=== PATIENT | female | born 1945 | race Caucasian/White ===

== ENCOUNTER 2020-08-19 08:33 | Observation (INO) | payer MEDICARE, BC, SELFPAY ==
[2020-08-19] VITALS (25 sets, daily range): BP systolic 128–172; BP diastolic 37–92; PULSE 45–70; RESP 12–27; TEMP 36.4–36.7; O2SAT 95–99
--- NOTE | 2020-08-19 | DI.US_ITS ---
APPROVED REPORT EXAM: Comprehensive 2D, Doppler, and color-flow Echocardiogram Patient Location: In-Patient Room/Bed: [address] [employer] Incentive Analyst: Farhana Buckley RDCS (AE) Indications: Fatigue, Weakness,Abnormal EKG, HTN Other Information Study Quality: Good Conclusion Left Ventricle : The left ventricle is normal size. The left ventricular systolic function is normal. The left ventricular ejection fraction is within the normal range. There is normal left ventricular wall thickness. There is normal LV segmental wall motion. The left ventricular diastolic function is normal. LVEF is 65-70%. Right Ventricle : The right ventricle is normal size. The right ventricular systolic function is norm al. The RVSP is 23.0mmHg. Atria : The left atrium size is normal. The right atrium size is normal. Aortic Valve : The aortic valve is normal in structure. Aortic valve is trileaflet. Mild aortic regur gitation. There is no aortic valvular stenosis. Mitral Valve : The mitral valve is normal in structure. Mild mitral regurgitation. No evidence of desi ral valve stenosis. Great Vessels : The aortic root is normal in size. The ascending aorta is moderately dilated. Aortic arch is normal in caliber. IVC is normal in size and collapses >50% with inspiration. Pericardium : Small circumferential pericardial effusion without evidence of tamponade. Please see remainder of study for further details. Wall motion Left Ventricle The left ventricle is normal size. The left ventricular systolic function is normal. The left ventric ular ejection fraction is within the normal range. There is normal left ventricular wall thickness. T here is normal LV segmental wall motion. The left ventricular diastolic function is normal. There is no ventricular septal defect visualized. LVEF is 65-70%. Right Ventricle The right ventricle is normal size. The right ventricular systolic function is normal. The RVSP is 23 .0mmHg. Atria The left atrium size is normal. The right atrium size is normal. The interatrial septum is intact wit h no evidence for an atrial septal defect. Aortic Valve The aortic valve is normal in structure. Aortic valve is trileaflet. There is no aortic valvular sten osis. Mild aortic regurgitation. Mitral Valve The mitral valve is normal in structure. No evidence of mitral valve stenosis. Mild mitral regurgitat ion. Mild mitral valve prolapse. Tricuspid Valve The tricuspid valve is normal in structure. There is no tricuspid valve stenosis. Trace tricuspid reg urgitation. Pulmonic Valve The pulmonary valve is normal in structure. There is no pulmonic valvular stenosis. Trace pulmonic re gurgitation. Great Vessels The aortic root is normal in size. The ascending aorta is moderately dilated. Aortic arch is normal i n caliber. IVC is normal in size and collapses >50% with inspiration. Pericardium Small circumferential pericardial effusion. There is no evidence of tamponade physiology. 2D Dimensions IVSD d PLAX 0.77 cm F: 0.6-1.0 LV Vol A2C d MOD 71.9 mL LVPW d PLAX 0.75 cm F: 0.6 - 1.0 LV Vol A4C d MOD 73.3 mL LVID d PLAX 4.71 cm F: 3.8 - 5.2 LA vol/ BSA A2C s A-L 21.6 mL/m2 LVDs 2.90 cm F: 2.2 - 3.5 LA vol/ BSA A4C s A-L 37.6 mL/m2 Ao Root d 3.10 cm F: 2.7 - 3.3 LA Vol/ BSA Biplane s A-L 33.9 mL/m2 RA Area A4C 21.15 cm2 LA Area A4C s MOD 19.65 cm2 RA Vol/ BSA A4C s A-L 47.9 mL/m2 LA Area A2C s MOD 12.53 cm2 Ao Asc Diam d 3.60 cm F: 2.3 - 3.1 LV EF A4C MOD 70.1 % LV EF Teichholz 67.7 % LV EF A2C MOD 64.9 % LVEF (Stone's) 66.18 % F: 54 - 74 LV EF Biplane MOD 66.2 % LV Volume 61.11 mL F: 46 - 106 SV 48.21 mL LV Volume Index 41.57 mL/m2 F: 29 - 61 SV Index 32.67 mL/m2 LV Vol Biplane MOD 72.8 mL FS 37.60 % M-Mode TAPSE 2.51 cm (M/F) >1.7 LV Diastology MV E' medial 0.074 (>0.07 m/s) E/A Ratio 0.9 LV E/e MED 9.45 (<14) MV E Vmax 0.70 (0.4-1.3 m/s) MV E' lateral 0.084 (>0.1 m/s) MV A Vmax 0.80 (0.4-1.3 m/s) LV E/e LAT 8.35 (<14) MV E/A Ratio 0.87 MV E/E' medial 9.46 MV E/E' lateral 8.36 Aortic Valve LVOT Area 2.93 cm2 AoV Area Vmax 2.29 cm2 LVOT Vmax 1.19 m/s AoV Area/ BSA (Vmax) 1.55 cm2/m2 LVOT Mean Ha. 0.67 m/s HI Mean Ha. 2.01 cm2 LVOT Peak Grad 5.6 mmHg HI Mean Ha. Index 1.36 cm2/m2 LVOT Mean Grad 2.3 mmHg AR DT 2744 msec LVOT VTI 0.280 m AR PHT 796 msec LVOT Diam s 1.90 cm AoV Vmax 1.52 m/s Velocity Ratio 0.78 AoV Mean Ha. 0.98 m/s AoV Peak Grad 9.2 mmHg LVOT SV 82.14 mL AoV Mean Grad 4.5 mmHg AoV VTI 0.350 m AoV Area VTI 2.35 cm2 AoV Area/ BSA (VTI) 1.59 cm/m2 Mitral Valve MV DT 263 (160-240 msec) MR Vmax 3.42 m/s MV PHT 76 msec MR VTI 1.166 m MV Area PHT 2.88 cm2 MR Peak Grad 46.8 mmHg MV VTI 0.376 m MR Mean Grad 38.8 mmHg MV VTI Annulus 0.360 m MR PISA Radius 0.32 cm MV Area VTI 2.10 (4.0-6.0 cm2) MR EROA 0.06 cm2 MR Aliasing Velocity 0.35 m/s MR PISA 0.64 cm2 Pulmonary Valve PV Vmax 0.78 (0.5-1.5 m/s) RVOT Peak Gr. 1.33 mmHg PV Peak Grad 2.4 mmHg RVOT Mean Gr. 0.65 mmHg PV Mean Grad 1.3 mmHg RVOT VTI 0.141 m PV VTI 0.194 m RVOT Vmax 0.58 m/s Tricuspid Valve TR Peak Grad 20.0 mmHg TR Vmax 2.24 m/s RA Pressure 3.00 mmHg RVSP (TR) 23.0 mmHg
--- NOTE | 2020-08-19 09:00 | DI.RAD_ITS ---
EXAM: XR CHEST 2V PA LATERAL CLINICAL HISTORY: generalized weakness TECHNIQUE: 2D digital imaging was performed. COMPARISON: No exams were available for comparison FINDINGS: MEDIASTINUM: Normal. HEART: Normal. PULMONARY VASCULATURE: Normal. LUNGS: Clear. PLEURAL SPACE: No pleural effusion or pneumothorax. BONE:Within normal limits for the patient's age. OTHER FINDINGS:Normal. IMPRESSION: No acute pulmonary findings. DATA REPOSITORY: RADIATION DOSE DELIVERED:
--- NOTE | 2020-08-19 09:15 | RT.EKG_ITS ---
APPROVED REPORT Exam: Resting ECG Patient Location: E HR:50 bpm ECG Measurements Heart Rate 50 AXIS ND 153 P 65 QRSd 84 QRS 15 QT 438 T 66 QTc 400 Conclusion Sinus bradycardia...rate< 60 Anteroseptal infarct, age indeterminate...Q >35mS, T neg, V1-V2 sinus bradycardia at 50, normal axis, Q waves V1 and V2, no STEMI, nondiagnostic EKG
--- NOTE | 2020-08-19 09:20 | ED.GENADUL_ITS ---
Discharge Plan Disposition Condition: Stable Discharge Details Chief Complaint: Abd Prob Admit Date/Time: 08/19/20 11:46 Admit Provider: Zully Jerez Attending Provider: Zully Jerez Primary Care Provider: Edith,Local ED Provider: Angela Casillas Discharge Instructions Activity:: Activity as Tolerated Equipment/Supplies:: No Equipment Needed Diet:: As Tolerated Discharge Orders Discharge Orders: Discharge Order (Routine); Ordered 08/20/20 Ordered By: Kendra Ayon Discharge Data Discharge Date/Time-TO BE ENTERED AT DEPARTURE: 08/19/20 12:34 Medical Decision Making Molly Meek is a 75 y/o woman with h/o HTN who presented to the emergency department with progressive fatigue and loss of appetite beginning one month ago, Pt now has not eaten in 2 days and is having difficulty caring for herself. On exam Pt appears fatigued but is otherwise well and non-toxic appearing. Non-focal neuro exam, benign abdominal exam. Concern for dehydration, metabolic/lyte derangement, possible occult infection, malignancy, other. Plan for EKG, CXR, screening labs, CT abd/pelv, IVF hydration. Labs reviewed, non-diagnostic. CXR okay. CT shows possible colitis. Unclear etiology of symptoms at this time. Given significant progression over past 2 days, plan for observation for further evaluation. Pt is amenable to the plan. Clinical Impression: loss of appetite, fatigue Disposition: [facility] inpt Medical Records Medical records reviewed: Yes I reviewed the patient's medical records. Imaging Data Radiologic Study: Attestation: I personally reviewed and interpreted this imaging study as follows: Radiologist's impression: EXAM: XR CHEST 2V PA LATERAL CLINICAL HISTORY: generalized weakness TECHNIQUE: 2D digital imaging was performed. COMPARISON: No exams were available for comparison FINDINGS: MEDIASTINUM: Normal. HEART: Normal. PULMONARY VASCULATURE: Normal. LUNGS: Clear. PLEURAL SPACE: No pleural effusion or pneumothorax. BONE:Within normal limits for the patient's age. OTHER FINDINGS:Normal. IMPRESSION: No acute pulmonary findings. EXAM: CT ABDOMEN PELVIS W CLINICAL HISTORY: lack of appetite, bloating TECHNIQUE: Imaging Protocol: Axial computed tomography images with coronal and sagittal reformatted images were created and reviewed CONTRAST MATERIAL: Intravenous: Omnipaque 350 Contrast volume:76 mL Oral: No COMPARISON: No exams were available for comparison FINDINGS: ABDOMEN: Lung Bases: Normal where visualized. Small pericardial effusion. Liver: Normal density. No measurable mass. Portal, Superior Mesenteric, and Splenic Veins: Unremarkable. Gallbladder and Biliary Tract: No radiodense calculus or dilation. Pancreas: Normal density, no abnormal calcifications or inflammatory process. Spleen: No acute abnormality. Adrenals: No masses seen. Kidneys: Normal size, contour and axis. No radiodense stones or obstructive urop athy. No masses seen. Abdominal Aorta: Abdominal portion non-dilated. Mild atherosclerosis. Bowel: No evidence of bowel obstruction. There is mild thickening of the wall of the distal transverse colon and proximal descending colon. This may be due to underdistention but a nonspecific inflammatory or infectious colitis should be considered. Please correlate clinically. Appendix is unremarkable. Diverticulosis of the sigmoid colon, but no evidence of acute diverticulitis. Peritoneal Cavity: No ascites, collection or mesenteric inflammatory response. No free air. Lymph Nodes: Within normal limits. Bones: Within normal limits for the patient's age. Soft Tissues: Unremarkable. PELVIS: Bladder: Symmetric distention, no gross wall thickening. Reproductive Organs: Unremarkable as visualized. Lymph Nodes: Within normal limits. Bones: Within normal limits for the patient's age. IMPRESSION: 1. Mild thickening of the wall of the transverse and proximal descending colon. This may be due to underdistention but a nonspecific inflammatory infectious colitis should be considered. 2. Sigmoid diverticulosis but no evidence of acute diverticulitis. 3. Results of this exam have been verbally communicated with provider. Lab Data Lab results reviewed: Yes I reviewed the patient's lab results. ECG Data Attestation: I personally reviewed and interpreted this ECG (s) as follows: Interpretation: EKG shows sinus bradycardia at 50, normal axis, Q waves V1 and V2, no STEMI, nondiagnostic EKG HPI General Mode of arrival: ambulatory . Date/Time Provider Initiated Documentation: 08/19/20 08:35 . Limitations to Documentation: no limitations . Information obtained by: patient, RN notes reviewed and old records reviewed . HPI Narrative: Molly Meek is a 75-year-old woman with history of hypertension presenting to the emergency department with generalized weakness, lack of appetite. Patient reports that approximately 2 weeks ago she noticed that she seemed to have a decrease in her usual appetite. Patient continued to eat and drink normally, however in the last 2 days appetite has become worse. Patient reports that for the past 2 days she has not wanted to eat anything at all, and has not had a meal since 08/17/2020. 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 Pt reports that her weakness has been substantial enough that she feels almost unable to care for herself. She denies any pain, fever, shortness of breath, cough, vomiting, diarrhea, constipation, new numbness, localized weakness. Reports chronic numbness left ankle after fracture 1 year ago, this is unchanged. Patient reports normal bowel movement yesterday. Patient reports that she does not have nausea and she can taste food normally. Patient reports that she has never had a similar episode in the past. Related Data Home Medications Medication Instructions Recorded Confirmed amlodipine 2.5 mg PO QPM 08/19/20 08/19/20 losartan 100 mg PO DAILY 08/19/20 08/19/20 Allergies Allergy/AdvReac Type Severity Reaction Status Date / Time No Known Allergies Allergy Unverified 08/19/20 08:43 General Stated Complaint: Abd Prob JAVI: 3 Review of Systems Narrative: Constitutional: denies fevers, reports generalized weakness, fatigue Eyes: denies eye pain ENT: denies ear pain, dental pain, sore throat Cardiovascular: denies chest pain, lightheadedness Respiratory: denies SOB, cough GI: denies abdominal pain, vomiting, diarrhea : denies flank pain MSK: denies back pain, neck pain, arthralgias, myalgias Skin: denies rash Neuro: denies headaches, new numbness, localized weakness [facility] Medical History (Updated 08/19/20 @ 15:18 by Trena Hopkins NP) HTN (hypertension) Social History Smoking/Tobacco Use Status: Former Tobacco Use Smoking risk assessment performed?: Yes Alcohol Intake: former Drug use: Daily Substance use type: marijuana Do you feel safe at home: Yes Do you feel safe in your relationship?: Yes Exam Narrative Exam Narrative: Constitutional: well and [id number], pleasant, conversing normally HENT: head atraumatic/normocephalic/normal inspection, mucous membranes moist Eyes: conjunctiva normal, sclera normal, pupils 3mm b/l Neck: no stridor, normal ROM, trachea midline Chest: normal inspection Resp: normal work of breathing, LCTAB Cardio: normal rate, normal rhythm, no murmur appreciated GI: abdomen soft, non-tender, non-distended Back: normal inspection, no rash Skin: warm, dry, normal color, no rash Neuro: alert, not altered, grossly non-focal, normal tone Ext: no edema Psych: normal mood, normal affect, normal behavior Course Vital Signs Vital signs: Vital Signs Temperature 36.4 C L 08/19/20 08:39 Pulse 70 08/19/20 08:39 Blood Pressure 166/88 H 08/19/20 08:39 Pulse Oximetry 96 08/19/20 08:39 Temperature 36.4 C L 08/19/20 08:39 Temperature Source Temporal Artery Scan 08/19/20 08:39 Pulse 70 08/19/20 08:39 Respiratory Effort Non-Labored 08/19/20 08:51 Blood Pressure 166/88 H 08/19/20 08:39 Blood Pressure Position Sitting 08/19/20 08:39 Pulse Oximetry 96 08/19/20 08:39 Oxygen Delivery Method Room Air 08/19/20 08:39 Oxygen Flow Rate 0 08/19/20 08:39 Pain Level 0 08/19/20 08:39
[2020-08-19 09:32] LABS: Source Nasal/Nares
[2020-08-19 09:33] LABS: Abs Immature Grans 0.02 10^3/uL (0.0-0.06); Absolute Basophil Count 0.04 10^3/uL (0.0-0.2); Absolute Eosinophil Count 0.09 10^3/uL (0.0-0.7); Absolute Lymphocyte Count 1.01 10^3/uL (1.2-3.4); Absolute Monocyte Count 0.38 10^3/uL (0.1-0.8); Absolute Neutrophil Count 3.33 10^3/uL (1.2-6.7); Basophils % 0.8; Eosinophils % 1.8; HCT 39.4 % (36.0-46.0); HGB 13.5 g/dL (11.2-15.7); Immature Grans % 0.4; Lymphocytes % 20.7; MCH 30.8 pg (27.0-33.0); MCHC 34.3 % (32.0-36.0); MPV 9.7 fL (8.0-11.0); Monocytes % 7.8; Neutrophils % 68.5; Nucleated RBC 0 %; Platelet Count 302 10^3/uL (130-400); RBC 4.38 10^6/uL (3.93-5.22); RDW 12.8 % (11.7-14.6); RDW-SD 42.5 fL; WBC 4.87 10^3/uL (4.4-10.8)
[2020-08-19 09:46] LABS: ALT 29 U/L (14-59); AST 24 U/L (15-37); Alkaline Phosphatase 49 U/L (46-116); Anion Gap 8.9 mmol/L (3-11); BUN 10 mg/dL (7-18); Bilirubin, Total 0.8 mg/dL (0.2-1.0); CO2 26.1 mmol/L (21.0-32.0); CREATININE 0.8 mg/dL (0.55-1.02); Calcium 9.5 mg/dL (8.5-10.1); Chloride 99 mmol/L (98-107); Glucose 106 mg/dL (74-106); Lipase 140 U/L (73-393); Magnesium 2.1 mg/dL (1.8-2.4); Potassium 3.9 mmol/L (3.5-5.1); Sodium 134 mmol/L (136-145); Total Protein 7.4 g/dL (6.4-8.2)
[2020-08-19 09:48] LABS: Troponin I < 0.05 ng/mL (<0.06)
[2020-08-19] MEDS: Normal Saline 1,000 ML 1000 ML IV (09:53)
--- NOTE | 2020-08-19 10:00 | DI.CT_ITS ---
EXAM: CT ABDOMEN PELVIS W CLINICAL HISTORY: lack of appetite, bloating TECHNIQUE: Imaging Protocol: Axial computed tomography images with coronal and sagittal reformatted images were created and reviewed CONTRAST MATERIAL: Intravenous: Omnipaque 350 Contrast volume:76 mL Oral: No COMPARISON: No exams were available for comparison FINDINGS: ABDOMEN: Lung Bases: Normal where visualized. Small pericardial effusion. Liver: Normal density. No measurable mass. Portal, Superior Mesenteric, and Splenic Veins: Unremarkable. Gallbladder and Biliary Tract: No radiodense calculus or dilation. Pancreas: Normal density, no abnormal calcifications or inflammatory process. Spleen: No acute abnormality. Adrenals: No masses seen. Kidneys: Normal size, contour and axis. No radiodense stones or obstructive uropathy. No masses seen. Abdominal Aorta: Abdominal portion non-dilated. Mild atherosclerosis. Bowel: No evidence of bowel obstruction. There is mild thickening of the wall of the distal transver se colon and proximal descending colon. This may be due to underdistention but a nonspecific inflamm atory or infectious colitis should be considered. Please correlate clinically. Appendix is unremark able. Diverticulosis of the sigmoid colon, but no evidence of acute diverticulitis. Peritoneal Cavity: No ascites, collection or mesenteric inflammatory response. No free air. Lymph Nodes: Within normal limits. Bones: Within normal limits for the patient's age. Soft Tissues: Unremarkable. PELVIS: Bladder: Symmetric distention, no gross wall thickening. Reproductive Organs: Unremarkable as visualized. Lymph Nodes: Within normal limits. Bones: Within normal limits for the patient's age. IMPRESSION: 1. Mild thickening of the wall of the transverse and proximal descending colon. This may be due to u nderdistention but a nonspecific inflammatory infectious colitis should be considered. 2. Sigmoid diverticulosis but no evidence of acute diverticulitis. 3. Results of this exam have been verbally communicated with provider. RADIATION DOSE DELIVERED: 496.77mGy.cm Total DLP DATA REPOSITORY: All CT scans at this facility are submitted to the National Radiology Data Registry (NRDR) Dose Index Registry (DIR) with the [employer] ([employer]). RADIATION OPTIMIZATION: All CT scans at this facility use at least one of these dose optimization te chniques: automated exposure control; mA and/or kV adjustment per patient size (includes targeted exa ms where dose is matched to clinical indication); or iterative reconstruction.
[2020-08-19] MEDS: Omnipaque 350 MG/ML 100 ML BTL IV (10:29)
[2020-08-19 11:59] LABS: Bilirubin Negative (Negative); Blood Negative (Negative); Clarity Clear (Clear); Glucose Negative (Negative); Ketones Trace mg/dL (Negative); Leukocyte Esterase Negative (Negative); Nitrite Negative (Negative); Urobilinogen 0.2 EU/dL (Up TO 0.2)
[2020-08-19 12:13] LABS: COVID-19 PCR Negative (Negative)
[2020-08-19 12:25] LABS: Lactate 0.7 mmol/L (0.6-1.4)
--- NOTE | 2020-08-19 12:30 | RT.EKG_ITS ---
APPROVED REPORT Exam: Resting ECG Patient Location: I HR:49 bpm ECG Measurements Heart Rate 49 AXIS VA 161 P 54 QRSd 77 QRS 4 QT 443 T 48 QTc 400 Conclusion Sinus bradycardia...rate< 60
[2020-08-19 12:33] LABS: ESR 11 mm//hr (0-30)
[2020-08-19 12:46] LABS: C-Reactive Protein < 0.05 mg/dL (0.0-0.3); Troponin I < 0.05 ng/mL (<0.06)
[2020-08-19] MEDS: Normal Saline 1,000 ML 100 ML IV ×2 (12:51→22:56)
[2020-08-19] MEDS: Normal Saline Flush 10 ML SYR IVP (12:51)
[2020-08-19] MEDS: Heparin 5,000 UNITS/ML VIAL 5000 UNITS SC ×2 (13:11→21:52)
[2020-08-19 13:21] LABS: Procalcitonin < 0.1 ng/mL
--- NOTE | 2020-08-19 15:03 | HPE_ITS ---
Date of service: 08/19/20 Time of Service: 15:03 Assessment and Plan Assessment and plan (1) Colitis: Start date: 08/19/20 Start time: 15:19 Status: Acute Assessment and plan: Questionable colitis by imaging, infectious, however, no abdominal pain, no leukocytosis, afebrile, lactate normal. Decreased appetite x couple days with feeling of fullness 2 weeks prior to decreased appetite. Patient did receive COVID vaccine a couple weeks ago. Will hold off on antibiotics at this time due to no indications. IVF and monitor. Repeat lab work in am Anemia work up, CRP, (2) Fatigue: Start date: 08/19/20 Start time: 15:23 Status: Acute Assessment and plan: With worsening appetite, avid skier and increased fatigue over the last couple of days to the point she has not wanted to ski or eat. 2nd COVID vaccine couple weeks ago Negative covid this am Will send lyme panel anemia studies, though blood work appears normal. Hydrated with IVF Monitor patient for worsening symtpoms. 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 Jerez History of Present Illness History of Present Illness Chief Complaint: Weakness, fatigue, questionable colitis Narrative: 75 y.o female with PMH of HTN, presents to [facility] with generalized weakness and decreased appetite with a feeling of fullness for the last 2 weeks. She states that her activity level has declined over the last 2 days. She is an active skier but over the last 2 days she has not had any appetite or energy to want to go skiing. She denies CP, SOB, N/V/D. She has not had any abdominal pain or problems using the bathroom. Last BM was on yesterday and it was normal. Labs in ED unremarkable except sodium 134. CT with questionable infectious colitis, however no white count, lactate 0.7, afebrile. She has been asked to be admitted for further management. She is being admitted to /s on IVF. With warmer weather will also order lyme panel. CRP for am, anemia studies, echo was done results pending. She did receive COVID 19 vaccine last month unsure of exact date. Will rehydrate and monitor labs. Review of Systems All systems reviewed & are unremarkable except as noted in HPI and below PFSH Medical History (Updated 08/19/20 @ 15:18 by Trena Hopkins NP) HTN (hypertension) Social History Smoking/Tobacco Use Status: Former Tobacco Use Smoking risk assessment performed?: Yes Alcohol Intake: former Drug use: Daily Substance use type: marijuana Do you feel safe at home: Yes Do you feel safe in your relationship?: Yes Meds Home Medications and Allergies Allergies Allergy/AdvReac Type Severity Reaction Status Date / Time No Known Allergies Allergy Unverified 08/19/20 08:43 Home Medications Medication Instructions Recorded Confirmed Type amlodipine 2.5 mg PO QPM 08/19/20 08/19/20 History losartan 100 mg PO DAILY 08/19/20 08/19/20 History Exam Narrative Exam Narrative: : Constitutional: well and [id number], pleasant, conversing normally HENT: head atraumatic/normocephalic/normal inspection, mucous membranes moist Eyes: conjunctiva normal, sclera normal, pupils 3mm b/l Neck:no lymphedema, no JVD Chest: normal inspection Resp: LCTAB, no wheezing, rhonchi Cardio: normal rate, normal rhythm, no murmur appreciated GI: abdomen soft, non-tender, non-distended Back: normal inspection, no rash Skin: warm, dry, normal color, no rash Neuro: alert, not altered, grossly non-focal, normal tone Ext: no edema, cyanosis or clubbing Psych: normal mood, normal affect, normal behavior Results Labs Result diagrams: 08/19/20 09:00 08/19/20 09:00 Labs: Laboratory Results - last 24 hr 08/19/20 08/19/20 08/19/20 09:00 09:00 09:00 WBC 4.87 RBC 4.38 Hgb 13.5 Hct 39.4 MCV 90.0 MCH 30.8 MCHC 34.3 RDW 12.8 Plt Count 302 MPV 9.7 Immature Gran % 0.4 Neutrophils % 68.5 Lymphocytes % 20.7 Monocytes % 7.8 Eosinophils % 1.8 Basophils % 0.8 Nucleated RBC % 0 Absolute Neutrophils 3.33 Absolute Lymphocytes 1.01 L Absolute Monocytes 0.38 Absolute Eosinophils 0.09 Absolute Basophils 0.04 ESR VBG Lactate 1.0 Sodium 134 L Potassium 3.9 Chloride 99 Carbon Dioxide 26.1 Anion Gap 8.9 BUN 10 Creatinine 0.8 Estimated GFR/1.73 m2 >= 60.00 Glucose 106 Calcium 9.5 Magnesium 2.1 Total Bilirubin 0.8 AST 24 ALT 29 Alkaline Phosphatase 49 Troponin I C-Reactive Protein Total Protein 7.4 Albumin 4.0 Lipase 140 Procalcitonin TSH 1.50 Urine Color Urine Clarity Urine pH Ur Specific [place] Urine Protein Urine Ketones Urine Blood Urine Nitrite Urine Bilirubin Urine Urobilinogen Ur Leukocyte Esterase Urine Glucose COVID-19 Source SARS-CoV-2 (PCR) 08/19/20 08/19/20 08/19/20 09:00 09:00 09:13 WBC RBC Hgb Hct MCV MCH MCHC RDW Plt Count MPV Immature Gran % Neutrophils % Lymphocytes % Monocytes % Eosinophils % Basophils % Nucleated RBC % Absolute Neutrophils Absolute Lymphocytes Absolute Monocytes Absolute Eosinophils Absolute Basophils ESR 11 VBG Lactate Sodium Potassium Chloride Carbon Dioxide Anion Gap BUN Creatinine Estimated GFR/1.73 m2 Glucose Calcium Magnesium Total Bilirubin AST ALT Alkaline Phosphatase Troponin I < 0.05 C-Reactive Protein Total Protein Albumin Lipase Procalcitonin TSH Urine Color Urine Clarity Urine pH Ur Specific [place] Urine Protein Urine Ketones Urine Blood Urine Nitrite Urine Bilirubin Urine Urobilinogen Ur Leukocyte Esterase Urine Glucose COVID-19 Source Nasal/nares SARS-CoV-2 (PCR) Negative 08/19/20 08/19/20 08/19/20 11:45 12:15 12:15 WBC RBC Hgb Hct MCV MCH MCHC RDW Plt Count MPV Immature Gran % Neutrophils % Lymphocytes % Monocytes % Eosinophils % Basophils % Nucleated RBC % Absolute Neutrophils Absolute Lymphocytes Absolute Monocytes Absolute Eosinophils Absolute Basophils ESR VBG Lactate 0.7 Sodium Potassium Chloride Carbon Dioxide Anion Gap BUN Creatinine Estimated GFR/1.73 m2 Glucose Calcium Magnesium Total Bilirubin AST ALT Alkaline Phosphatase Troponin I < 0.05 C-Reactive Protein < 0.05 Total Protein Albumin Lipase Procalcitonin < 0.1 TSH Urine Color Yellow Urine Clarity Clear Urine pH 7.0 Ur Specific [place] 1.010 Urine Protein Negative Urine Ketones Trace H Urine Blood Negative Urine Nitrite Negative Urine Bilirubin Negative Urine Urobilinogen 0.2 Ur Leukocyte Esterase Negative Urine Glucose Negative COVID-19 Source SARS-CoV-2 (PCR) Last Vital Signs Temp 36.6 C 08/19/20 12:46 Pulse 51 L 08/19/20 14:18 Resp 18 08/19/20 12:46 BP 172/92 H 08/19/20 12:46 Pulse Ox 99 08/19/20 12:46 COVID-19 Screening Have you, or household traveled for leisure in last 14 days?: No Had IN PERSON contact w/suspected or confirmed C-19 person: No
[2020-08-19] MEDS: amLODIPine 2.5 MG TAB PO (19:39)
[2020-08-20] MEDS: Heparin 5,000 UNITS/ML VIAL 5000 UNITS SC (06:20)
[2020-08-20 07:48] LABS: Abs Immature Grans 0.01 10^3/uL (0.0-0.06); Absolute Basophil Count 0.06 10^3/uL (0.0-0.2); Absolute Eosinophil Count 0.19 10^3/uL (0.0-0.7); Absolute Lymphocyte Count 1.05 10^3/uL (1.2-3.4); Absolute Monocyte Count 0.31 10^3/uL (0.1-0.8); Absolute Neutrophil Count 2.79 10^3/uL (1.2-6.7); Basophils % 1.4; Eosinophils % 4.3; HCT 37.8 % (36.0-46.0); HGB 12.7 g/dL (11.2-15.7); Immature Grans % 0.2; Lymphocytes % 23.8; MCH 31.1 pg (27.0-33.0); MCHC 33.6 % (32.0-36.0); MCV 92.4 fL (80-95); MPV 9.8 fL (8.0-11.0); Neutrophils % 63.3; Nucleated RBC 0 %; Platelet Count 278 10^3/uL (130-400); RBC 4.09 10^6/uL (3.93-5.22); RDW 12.7 % (11.7-14.6); RDW-SD 43.2 fL; WBC 4.41 10^3/uL (4.4-10.8)
[2020-08-20 07:59] VITALS: BP 162/80; PULSE 54; RESP 18; TEMP 36.3; O2SAT 96
[2020-08-20 08:19] LABS: Anion Gap 7.5 mmol/L (3-11); BUN 8 mg/dL (7-18); CO2 26.5 mmol/L (21.0-32.0); CREATININE 0.7 mg/dL (0.55-1.02); Calcium 8.3 mg/dL (8.5-10.1); Chloride 104 mmol/L (98-107); Ferritin 138 ng/mL (8-252); Glucose 84 mg/dL (74-106); Potassium 3.7 mmol/L (3.5-5.1); Sodium 138 mmol/L (136-145)
[2020-08-20 08:35] LABS: C-Reactive Protein < 0.05 mg/dL (0.0-0.3)
[2020-08-20] MEDS: Losartan 50 MG TAB 100 MG PO (08:35)
[2020-08-20 08:48] LABS: Hemoglobin A1C 5.7 % (<5.7)
[2020-08-20 09:14] LABS: D-Dimer 522 ng/mlFEU (<500)
[2020-08-20] MEDS: Normal Saline 1,000 ML 100 ML IV (10:45)
--- NOTE | 2020-08-20 12:20 | W.PM.DS.N ---
Date of service: 08/20/20 Time of Service: 12:20 DS: Diagnosis Discharge Diagnosis (1) Colitis: Status: Acute (2) Fatigue: Status: Acute (3) Decreased appetite: Status: Acute (4) HTN (hypertension): Status: Chronic Discharge Plan Disposition Patient Disposition: HOME Condition: Stable Discharge Details Reason For Visit: COLITIS, DEHYDRATION Admit Date/Time: 08/19/20 11:46 Admit Provider: Zully Jerez Attending Provider: Zully Jerez Primary Care Provider: Jozef Sharma Hospital Course Hospital Course: This is a very active, health 75 year old female who presented to the ED with complaints of generalized weakness and decreased appetite with a feeling of fullness for the last 2 weeks. ED work up essentially unremarkable except sodium 134. CT with questionable infectious colitis, however no white count, lactate 0.7, afebrile. ED provider requested admission for further management so she was admitted to m/s for IVF. Further testing included lyme panel, which is pending, CRP which remained negative, anemia studies, and echo which showed EF 65-70% with no significant valvular disease, see report for full details. of interest she did receive COVID 19 vaccine last month unsure of exact date. overnight she rested comfortably, tolerating fluids well. hemodynamically stable, no fevers or diarrhea. she is stable for discharge to home. no new prescriptions. she should f/u with pcp outpatient for further work up (malignancy) as warranted, was advised to return sooner for new or worsening symptoms. discussed with DR Jerez Home Meds and New Rx's Prescriptions: Continued amlodipine 2.5 mg Tablet 2.5 mg PO QPM RF: 0 losartan 100 mg Tablet 100 mg PO DAILY RF: 0 Discharge Instructions Instructions: Colitis (ED) Additional Instructions: advance diet as tolerated, push fluids to stay well hydrated. return for new or worsening symtpoms Referrals: No,Local [Primary Care Provider] - (with your primary care porvider) Activity:: Activity as Tolerated Equipment/Supplies:: No Equipment Needed Diet:: As Tolerated Discharge Orders Discharge Orders: Discharge Order (Routine); Ordered 08/20/20 Ordered By: Kendra Ayon DS: Summary Time Spent with Patient providing and/or coordinating discharge services: Less than 30 minutes Status at Discharge Functional status at discharge: independent ambulation Overall status at discharge: patient is not back to baseline Mental Status: mental status grossly normal Speech and Movement: speech and movement normal Mood: congruent mood Affect: normal affect Exam Psych Mental Status: mental status grossly normal Speech and Movement: speech and movement normal Mood: congruent mood Affect: normal affect DS: Data Vitals/I&O Vitals and I&O: Vital Signs Temperature 36.3 C L 08/20/20 07:59 Temperature Source Tympanic 08/20/20 07:59 Pulse 54 L 08/20/20 07:59 Pulse Rhythm Regular 08/20/20 08:40 Pulse 47 L 08/19/20 12:20 Respiratory Rate 18 08/20/20 07:59 Respiratory Effort Non-Labored 08/20/20 08:40 Respiratory Depth Normal 08/20/20 08:40 Respiratory Pattern Normal 08/20/20 08:40 Blood Pressure 162/80 H 08/20/20 07:59 Blood Pressure Mean 64 08/19/20 12:17 Blood Pressure Position Sitting 08/19/20 08:39 Pulse Oximetry 96 08/20/20 07:59 Oxygen Delivery Method Room Air 08/20/20 07:59 Oxygen Flow Rate 0 08/20/20 07:59 Pain Level 0 08/20/20 07:59 Intake & Output 08/19/20 08/20/20 08/20/20 23:59 11:59 23:59 Intake Total 1550 / 1560 1540 / 1540 Output Total 1700 / 1700 Balance 1550 / 1560 -160 / -160 Weight 61.4 kg Intake: IV 1000 / 1010 1000 / 1000 Oral 550 / 550 540 / 540 Output: Urine 1700 / 1700 Other: Urine Color Yellow Urine Appearance Clear Clear Urine Odor None Voiding Methods Toilet Toilet Data Completed and Pending Labs on day of discharge: Labs from last 24 hours 08/20/20 08/20/20 08/20/20 07:18 07:18 07:18 WBC 4.41 RBC 4.09 Hgb 12.7 Hct 37.8 MCV 92.4 MCH 31.1 MCHC 33.6 RDW 12.7 Plt Count 278 MPV 9.8 Immature Gran % 0.2 Neutrophils % 63.3 Lymphocytes % 23.8 Monocytes % 7.0 Eosinophils % 4.3 Basophils % 1.4 Nucleated RBC % 0 Absolute Neutrophils 2.79 Absolute Lymphocytes 1.05 L Absolute Monocytes 0.31 Absolute Eosinophils 0.19 Absolute Basophils 0.06 ESR D-Dimer 522 H VBG Lactate Sodium Potassium Chloride Carbon Dioxide Anion Gap BUN Creatinine Estimated GFR/1.73 m2 Glucose Hemoglobin A1c 5.7 Calcium Magnesium Ferritin Troponin I C-Reactive Protein Procalcitonin A.phagocytophil DNA PCR B. divergens/MO-1 PCR Babesia duncani (PCR) Babesia microti DNA PCR Borrelia (PCR) Lyme Disease Antibody E.chaffeensis DNA (PCR) E.ewingii/canis DNA PCR E. muris-like DNA (PCR) 08/20/20 08/20/20 08/19/20 07:18 07:18 12:15 WBC RBC Hgb Hct MCV MCH MCHC RDW Plt Count MPV Immature Gran % Neutrophils % Lymphocytes % Monocytes % Eosinophils % Basophils % Nucleated RBC % Absolute Neutrophils Absolute Lymphocytes Absolute Monocytes Absolute Eosinophils Absolute Basophils ESR D-Dimer VBG Lactate 0.7 Sodium 138 Potassium 3.7 Chloride 104 Carbon Dioxide 26.5 Anion Gap 7.5 BUN 8 Creatinine 0.7 Estimated GFR/1.73 m2 >= 60.00 Glucose 84 Hemoglobin A1c Calcium 8.3 L Magnesium 2.0 Ferritin 138 Troponin I C-Reactive Protein < 0.05 Procalcitonin < 0.1 A.phagocytophil DNA PCR Pending B. divergens/MO-1 PCR Pending Babesia duncani (PCR) Pending Babesia microti DNA PCR Pending Borrelia (PCR) Pending Lyme Disease Antibody Pending E.chaffeensis DNA (PCR) Pending E.ewingii/canis DNA PCR Pending E. muris-like DNA (PCR) Pending 08/19/20 08/19/20 12:15 09:00 WBC RBC Hgb Hct MCV MCH MCHC RDW Plt Count MPV Immature Gran % Neutrophils % Lymphocytes % Monocytes % Eosinophils % Basophils % Nucleated RBC % Absolute Neutrophils Absolute Lymphocytes Absolute Monocytes Absolute Eosinophils Absolute Basophils ESR 11 D-Dimer VBG Lactate Sodium Potassium Chloride Carbon Dioxide Anion Gap BUN Creatinine Estimated GFR/1.73 m2 Glucose Hemoglobin A1c Calcium Magnesium Ferritin Troponin I < 0.05 C-Reactive Protein < 0.05 Procalcitonin A.phagocytophil DNA PCR B. divergens/MO-1 PCR Babesia duncani (PCR) Babesia microti DNA PCR Borrelia (PCR) Lyme Disease Antibody E.chaffeensis DNA (PCR) E.ewingii/canis DNA PCR E. muris-like DNA (PCR) [facility] Medical History (Updated 08/19/20 @ 15:18 by Trena Hopkins NP) HTN (hypertension) Social History Smoking/Tobacco Use Status: Former Tobacco Use Smoking risk assessment performed?: Yes Alcohol Intake: former Drug use: Daily Substance use type: marijuana Do you feel safe at home: Yes Do you feel safe in your relationship?: Yes
[2020-08-21 09:38] LABS: Lyme Ab w Rflx to Lyme Confirm Negative (Negative)
[2020-08-22 16:53] LABS: Anaplasma phagocytophilum Negative (Negative); B. miyamotoi PCR Negative (Negative); Babesia divergens/MO-1 Negative (Negative); Babesia duncani Negative (Negative); Babesia microti Negative (Negative); Ehrlichia chaffeensis Negative (Negative); Ehrlichia ewingii/canis Negative (Negative); Ehrlichia muris eauclairensis Negative (Negative)
== END 2020-08-20 16:48 | disposition home or self-care (01) ==
LOC: ER 12:21 → MS 12:33
PROVIDERS: Nurse Practitioner Family; Admitting Provider Internal Medicine; Emergency Provider Student in an Organized Health Care Education/Training Program; Visit Provider Internal Medicine
DX: K52.9 Noninfective gastroenteritis and colitis, unspecified (principal); R53.83 Other fatigue; R63.0 Anorexia; I10 Essential (primary) hypertension; Z20.822 Contact with and (suspected) exposure to COVID-19
CPT/HCPCS: 36415; 80048; 80053; 83690; 84145; 85652; 87635; 87798; 93005; 93306; 96360; 96361; 99220; 99238; 99285; 71046; 74177; 81003; 82728; 83036; 83605; 83735; 84443; 84484; 85025; 85379; 86140; 86618; 93010; 99217; 99284; G0378; J1644; J3490

== ENCOUNTER 2021-06-09 12:36 | Inpatient (IN) | payer MEDICARE, BC, SELFPAY ==
[2021-06-09] VITALS (24 sets, daily range): BP systolic 107–184; BP diastolic 36–84; PULSE 48–73; RESP 11–23; TEMP 36.3–36.7; O2SAT 97–100; BMI 21.4
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
[2021-06-09] MEDS: Normal Saline 1,000 ML 1000 ML IV (13:01)
[2021-06-09 13:03] LABS: Abs Immature Grans 0.03 10^3/uL (0.0-0.06); Absolute Basophil Count 0.05 10^3/uL (0.0-0.2); Absolute Eosinophil Count 0.13 10^3/uL (0.0-0.7); Absolute Lymphocyte Count 1.15 10^3/uL (1.2-3.4); Absolute Monocyte Count 0.43 10^3/uL (0.1-0.8); Absolute Neutrophil Count 5.41 10^3/uL (1.2-6.7); Basophils % 0.7; Eosinophils % 1.8; HCT 37.4 % (36.0-46.0); HGB 12.6 g/dL (11.2-15.7); Immature Grans % 0.4; MCH 31.3 pg (27.0-33.0); MCHC 33.7 % (32.0-36.0); MCV 92.8 fL (80-95); MPV 9.1 fL (8.0-11.0); Neutrophils % 75.1; Nucleated RBC 0 %; Platelet Count 334 10^3/uL (130-400); RBC 4.03 10^6/uL (3.93-5.22); RDW 13.4 % (11.7-14.6); RDW-SD 45.9 fL
[2021-06-09] MEDS: Omnipaque 350 MG/ML 100 ML BTL IJ (13:11)
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
[2021-06-09 13:17] LABS: ALT 23 U/L (14-59); AST 22 U/L (15-37); Albumin 4.1 g/dL (3.4-5.0); Alkaline Phosphatase 50 U/L (46-116); Anion Gap 10.8 mmol/L (3-11); BUN 12 mg/dL (7-18); Bilirubin, Total 0.5 mg/dL (0.2-1.0); CO2 24.2 mmol/L (21.0-32.0); CREATININE 0.8 mg/dL (0.55-1.02); Chloride 97 mmol/L (98-107); Glucose 139 mg/dL (74-106); Lipase 119 U/L (73-393); Magnesium 1.8 mg/dL (1.8-2.4); Potassium 3.5 mmol/L (3.5-5.1); Sodium 132 mmol/L (136-145); Total Protein 7.3 g/dL (6.4-8.2)
--- NOTE | 2021-06-09 13:30 | DI.CT_ITS ---
Exam(s) CT THORACIC LUMBAR SPINE REC EXAM: CT THORACIC LUMBAR SPINE REC CLINICAL HISTORY: spine recons please TECHNIQUE: COMPARISON: CT CT CHEST/ABD/PEL W from 06/09/2021 FINDINGS: THORACIC SPINAL COLUMN: No fracture nor listhesis. No osseous lesions. No scoliosis. LUMBOSACRAL SPINAL COLUMN: No evidence of acute fracture. Degenerative anterolisthesis of L2 upon L3 and L3 upon L4 as well as chronic disc space narrowing at multiple levels. No compression fractures . Please note this patient has left hip fracture IMPRESSION: Left hip fracture. There are no fractures thoracic and lumbar spinal column.
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
[2021-06-09 14:44] LABS: Source Nasal/Nares
--- NOTE | 2021-06-09 15:16 | W.ANESPRE ---
General Info Date of Service Date Performed: 06/09/21 Height: 5 ft Weight: 49.895 kg Body Mass Index (BMI): 21.4 Meds Allergies and Home Medications Allergies Allergy/AdvReac Type Severity Reaction Status Date / Time No Known Allergies Allergy Unverified 06/09/21 15:00 Home Medication Medication Instructions Recorded amlodipine 2.5 mg PO QPM 08/19/20 losartan 100 mg PO DAILY 08/19/20 Current Visit Medications: Current Medications Generic Name Dose Route Start Last Admin Trade Name Freq PRN Reason Stop Dose Admin Acetaminophen 0 mg 06/09/21 14:36 Acetaminophen 325 Mg Tab PO Q6H PRN PRN Amlodipine Besylate 2.5 mg 06/09/21 20:00 Amlodipine 2.5 Mg Tab PO QPM KASHMIR Dimethicone/Zinc Oxide 0 gm 06/09/21 14:36 Roxi Protect Cream 142 Gm Tube TP PRN PRN Docusate Sodium 100 mg 06/09/21 14:36 Docusate Sodium 100 Mg Cap PO TID PRN PRN Sodium Chloride 500 mls @ 0 mls/hr 06/09/21 14:36 Saline 500ml Bag IV PRN PRN As Directed Ringer's Solution 1,000 mls @ 30 mls/hr 06/09/21 14:45 IV INFUSION [facility] IV Miscellaneous Supplies 1 each 06/09/21 14:45 Iv Access IV DIRECTED [facility] Losartan Potassium 100 mg 06/10/21 08:30 Losartan 50 Mg Tab PO DAILY KASHMIR Magnesium Hydroxide 30 ml 06/09/21 14:36 Milk Of Magnesia 30 Ml Cup PO DAILY PRN PRN Morphine Sulfate 2 mg 06/09/21 14:43 Morphine 2 Mg/Ml Syr IVP Q3H PRN PRN Polyethylene Glycol 17 gm 06/09/21 14:36 Polyethylene Glycol 3350 17 Gm Packet PO DAILY PRN PRN Constipation Sodium Chloride 0 ml 06/09/21 14:36 Normal Saline Flush 10 Ml Syr IVP PRN PRN PFSH Active Problems Active Problems: Problem Status Onset Code Closed fracture of left hip 06/09/21 S72.002A Colitis K52.9 Discharge planning issues Z02.9 DVT prophylaxis Z29.9 Fatigue R53.83 Decreased appetite R63.0 HTN (hypertension) I10 Medical History Medical History HTN (hypertension) Tobacco Smoking/Tobacco Use Status: Former Tobacco Use Alcohol Alcohol Intake: former Substance Use Substance use: Daily Substance use type: marijuana Vital Signs and Lab Results Vital Signs Most Recent Vital Signs in EMR: Most Recent Vital Signs Temp Pulse Resp BP Pulse Ox 36.5 C 69 16 177/67 H 99 06/09/21 12:49 06/09/21 12:49 06/09/21 12:49 06/09/21 12:49 06/09/21 12:49 Lab Results Result Diagrams: 06/09/21 12:55 06/09/21 12:55 Blood Type / Crossmatch: No Data to Display Complete Blood Count: White Blood Count 7.20 10^3/uL (4.4-10.8) 06/09/21 12:55 06/09/21 Red Blood Count 4.03 10^6/uL (3.93-5.22) 06/09/21 12:55 06/09/21 Hemoglobin 12.6 g/dL (11.2-15.7) 06/09/21 12:55 06/09/21 Hematocrit 37.4 % (36.0-46.0) 06/09/21 12:55 06/09/21 Platelet Count 334 10^3/uL (130-400) 06/09/21 12:55 06/09/21 Complete Metabolic Panel: Sodium Level 132 mmol/L (136-145) L 06/09/21 12:55 06/09/21 Potassium Level 3.5 mmol/L (3.5-5.1) 06/09/21 12:55 06/09/21 Chloride Level 97 mmol/L (98-107) L 06/09/21 12:55 06/09/21 Carbon Dioxide Level 24.2 mmol/L (21.0-32.0) 06/09/21 12:55 06/09/21 Blood Urea Nitrogen 12 mg/dL (7-18) 06/09/21 12:55 06/09/21 Creatinine 0.8 mg/dL (0.55-1.02) 06/09/21 12:55 06/09/21 Estimated GFR/1.73 m2 >= 60.00 (mL/min/1.73m2) 06/09/21 12:55 06/09/21 Magnesium Level 1.8 mg/dL (1.8-2.4) 06/09/21 12:55 06/09/21 Calcium Level 9.0 mg/dL (8.5-10.1) 06/09/21 12:55 06/09/21 Albumin 4.1 g/dL (3.4-5.0) 06/09/21 12:55 06/09/21 Glucose Level 139 mg/dL (74-106) H 06/09/21 12:55 06/09/21 Liver Function Panel: Alanine Aminotransferase (ALT/SGPT) 23 U/L (14-59) 06/09/21 12:55 06/09/21 Aspartate Amino Transf (AST/SGOT) 22 U/L (15-37) 06/09/21 12:55 06/09/21 Coagulation Panel: No Data to Display Cardiac Panel: No Data to Display Arterial Blood Gas: No Data to Display Venous Blood Gas: No Data to Display Pancreas Panel: Lipase 119 U/L (73-393) 06/09/21 12:55 06/09/21 Thyroid Panel: No Data to Display Infectious Disease: Coronavirus 2019 Source Nasal/Nares 06/09/21 14:25 06/09/21 Blood Cultures: No Data to Display Toxicology Panel: No Data to Display Anesthesia Assessment and Plan Anesthesia History Personal History: No History of Anesthesia Complications Family History: No Family History of Anesthesia Complications Exercise Tolerance Exercise Tolerance: Metabolic Equivalents>4 Pertinent Negatives Pertinent Negatives: No Symptoms of GERD, No Major Cardiovascular Symptoms or Complaints, No Major Pulmonary Symptoms or Complaints, No History of CVA/TIA and Other (Daily marjuana PO) Cardiac & Pulmonary Exam Cardiac Exam: Normal S1/S2 Heart Sounds Pulmonary Exam: Clear Bilateral Breath Sounds Implantable Cardiac Device Does patient have a Pacemaker or an ICD?: No Airway Exam Known Difficult Airway: No Mallampati Class: 1 Mouth Opening: Normal (> 3cm) Thyromental Distance: Greater than 3 cm Neck Range of Motion: Full ROM Neck Circumference: Normal Teeth Condition: Normal Dentition ASA Classification ASA Score: ASA 2 Emergency Case?: No NPO Status NPO Status: NPO Clears >2 hours, Solids >8 hours Anesthesia Plan Resuscitation Status: Full Code Anesthesia Technique: General Anesthesia Airway Planned: Natural Airway Monitors Used: Standard Monitors
[2021-06-09 15:32] LABS: ALT 27 U/L (14-59); AST 24 U/L (15-37); Albumin 4.1 g/dL (3.4-5.0); Alkaline Phosphatase 51 U/L (46-116); BUN 14 mg/dL (7-18); Bilirubin, Total 0.5 mg/dL (0.2-1.0); CREATININE 0.8 mg/dL (0.55-1.02); Calcium 9.1 mg/dL (8.5-10.1); Chloride 97 mmol/L (98-107); Glucose 139 mg/dL (74-106); Potassium 3.5 mmol/L (3.5-5.1); Sodium 132 mmol/L (136-145); Total Protein 7.3 g/dL (6.4-8.2); Troponin I < 50 ng/L (<or=60)
--- NOTE | 2021-06-09 15:58 | W.ANESNERVE ---
Nerve Block Single Injection Procedure Date and Time Date Performed: 06/09/21 Procedure Start: 15:25 Location Where Procedure Performed Procedure Location: Emergency Department Reason Performed: Acute Pain Management Pain Diagnosis: Hip Pain Requesting Provider: Zena Timeout Performed Timeout Performed: Yes Monitoring Used ECG, Blood Pressure and SpO2 Sterility Sterility: Hand Hygiene, Surgical Cap, Surgical Mask, Sterile Gloves, Eye Protection and Chlorhexidine Sedation Given During Procedure Sedation Given (Indicate Dose Given): No Sedation given Patient Mental Status Patient Mental Status: Awake Nerve Block 1st Nerve Block: Laterality: Left Block Type: ROBERT Needle / Catheter Used: 100mm SonoPlex II Local Anesthetic Bolus (Indicate Dose Given): Lidocaine used for local infiltration of skin, Bupivacaine 0.5% Dose:: 10cc and Exparel Dose:: 10cc Additives (Indicate Dose Given): None Ultrasound: Sterile probe cover and gel used Ultrasound Image Saved?: Yes Nerve Stimulator: Not Used Paresthesia: None Procedure Tolerated: No Complications and Patient tolerated well Procedure Outcome: Successful Procedure Comment: Pain went from 10 to 2. RN was able to raise HOB to 30 degrees at pt request. Performed By: Ewa
[2021-06-09] MEDS: Lactated Ringers 1,000 ML 30 ML IV (16:51)
--- NOTE | 2021-06-09 17:00 | HPE_ITS ---
Date of service: 06/09/21 Time of Service: 17:00 Assessment and Plan Assessment and plan (1) Closed fracture of left hip: Start date: 06/09/21 Start time: 07:00 Status: Acute Assessment and plan: Fell while skiing landing on Took THC and psychacdellic shrooms yesterday prior to skiing [place] consulted in ED. Scheduled for surgery for tomorrow EKG to be done, CT with no acute abnormailited of the lungs She is low risk outcome for surgery She will be NPO after MN Hold chemcial DVT propylaxis Teds and Scds LR @ 30 ml/ hr Multimodalities for pain IS Qualifiers: Encounter type: initial encounter Qualified Code(s): S72.002A - Fracture of unspecified part of neck of left femur, initial encounter for closed fracture (2) HTN (hypertension): Start date: 06/09/21 Start time: 17:00 Status: Chronic Assessment and plan: Continue amlodipine and losartin Qualifiers: Hypertension type: primary hypertension Qualified Code(s): I10 - Essential (primary) hypertension (3) DVT prophylaxis: Start date: 06/09/21 Start time: 17:00 Status: Acute Assessment and plan: hold chemical at this time for surgery Teds and Scds (4) Discharge planning issues: Start date: 06/09/21 Start time: 17:00 Status: Acute Assessment and plan: Home vs Rehab discussed with Dr. Jerez History of Present Illness History of Present Illness Chief Complaint: Left hip fx Narrative: 76 y.o female presents to [facility] with left hip fracture after skiing. Prior to skiing she ingested TShe THC, and psychedelic mushrooms prior to crash. She fell landing on her left hip. .Labs in ED reveal Sodium 132 chloride 97, anion gap 12.0 glucose 13. Xray revealed fracture of the left hip which appears to be predominantly intertrochanteric. Ortho consulted in ED. Plan for surgery tomorrow with Dr. Freitas. She has been asked to be admitted to [facility] for further admission. NPO after MN. Teds and scds until ater surgery. LR until after surgery. Catheter placed. Patient is low risk for surgery. CT revealed no abnormalities in the lungs. TOAN risk is low for surgery according to RAM Perioperative Risk assessment, and low risk according to Periopoperative Mortalitly predictor risk. Therefore make her npo after MN. LR at and multiple pain moldalities and anitemetics. Consult Dr. Freitas. Review of Systems All systems reviewed & are unremarkable except as noted in HPI and below PFSH All Active Problems (Updated 06/10/21 @ 09:36 by Trena Hopkins NP) Closed fracture of left hip (Acute 06/09/21) Colitis (Acute) Discharge planning issues (Acute) DVT prophylaxis (Acute) Fatigue (Acute) Decreased appetite (Acute) HTN (hypertension) (Chronic) Medical History HTN (hypertension) Social History Smoking/Tobacco Use Status: Former Tobacco Use Smoking risk assessment performed?: Yes Alcohol Intake: former Drug use: Daily Substance use type: marijuana Do you feel safe at home: Yes Do you feel safe in your relationship?: Yes Meds Allergies and Home Medications Allergies Allergy/AdvReac Type Severity Reaction Status Date / Time No Known Allergies Allergy Unverified 06/09/21 15:00 Home Medications Medication Instructions Recorded Confirmed Type amlodipine 2.5 mg PO QAM 08/19/20 06/09/21 History losartan 100 mg PO QPM 08/19/20 06/09/21 History Exam Const General: cooperative, comfortable and no acute distress Nutritional Appearance: thin Orientation: alert, awake and oriented x3 Eyes Eyelids: eyelids normal Pupils: PERRL EOM: EOM intact bilaterally Neck Neck: normal visual inspection and no JVD Lymphatic: no lymphadenopathy noted Resp Effort & Inspection: normal respiratory effort Auscultation: clear to auscultation bilaterally Cardio Jugular venous pressure: no JVD Rhythm: regular rhythm Heart Sounds: S1 normal GI Auscultation: normal bowel sounds General: No CVA tenderness and deferred Skin General skin exam: no rashes or lesions noted Neuro General: patient alert, patient awake and patient oriented x3 Cognition: normal cognition Speech: speech normal Gait: normal gait Extrem General: abnormal to inspection Left lower extremity: normal to inspection (patient has LLE external rotation with shortenting,cmst+) Results Labs Result diagrams: 06/10/21 07:00 06/10/21 07:00 Labs: Laboratory Results - last 24 hr 06/09/21 06/09/21 06/09/21 12:55 12:55 12:55 WBC 7.20 RBC 4.03 Hgb 12.6 Hct 37.4 MCV 92.8 MCH 31.3 MCHC 33.7 RDW 13.4 Plt Count 334 MPV 9.1 Immature Gran % 0.4 Neutrophils % 75.1 Lymphocytes % 16.0 Monocytes % 6.0 Eosinophils % 1.8 Basophils % 0.7 Nucleated RBC % 0 Absolute Neutrophils 5.41 Absolute Lymphocytes 1.15 L Absolute Monocytes 0.43 Absolute Eosinophils 0.13 Absolute Basophils 0.05 Sodium 132 L 132 L Potassium 3.5 3.5 Chloride 97 L 97 L Carbon Dioxide 24.2 23.0 Anion Gap 10.8 12.0 H BUN 12 14 Creatinine 0.8 0.8 Estimated GFR/1.73 m2 >= 60.00 >= 60.00 Glucose 139 H 139 H Calcium 9.0 9.1 Magnesium 1.8 2.0 Total Bilirubin 0.5 0.5 AST 22 24 ALT 23 27 Alkaline Phosphatase 50 51 Troponin I < 50 Total Protein 7.3 7.3 Albumin 4.1 4.1 Lipase 119 COVID-19 Source 06/09/21 14:25 WBC RBC Hgb Hct MCV MCH MCHC RDW Plt Count MPV Immature Gran % Neutrophils % Lymphocytes % Monocytes % Eosinophils % Basophils % Nucleated RBC % Absolute Neutrophils Absolute Lymphocytes Absolute Monocytes Absolute Eosinophils Absolute Basophils Sodium Potassium Chloride Carbon Dioxide Anion Gap BUN Creatinine Estimated GFR/1.73 m2 Glucose Calcium Magnesium Total Bilirubin AST ALT Alkaline Phosphatase Troponin I Total Protein Albumin Lipase COVID-19 Source Nasal/Nares Last Vital Signs Temp 36.5 C 06/09/21 12:49 Pulse 57 L 06/09/21 15:46 Resp 18 06/09/21 15:46 BP 166/84 H 06/09/21 15:46 Pulse Ox 100 06/09/21 15:41
[2021-06-09 17:03] LABS: Abs Immature Grans 0.04 10^3/uL (0.0-0.06); Absolute Basophil Count 0.04 10^3/uL (0.0-0.2); Absolute Eosinophil Count 0.03 10^3/uL (0.0-0.7); Absolute Lymphocyte Count 0.47 10^3/uL (1.2-3.4); Absolute Monocyte Count 0.67 10^3/uL (0.1-0.8); Absolute Neutrophil Count 11.69 10^3/uL (1.2-6.7); Basophils % 0.3; Eosinophils % 0.2; HCT 33.4 % (36.0-46.0); HGB 11.2 g/dL (11.2-15.7); Immature Grans % 0.3; Lymphocytes % 3.6; MCH 30.9 pg (27.0-33.0); MCHC 33.5 % (32.0-36.0); MPV 9.1 fL (8.0-11.0); Monocytes % 5.2; Neutrophils % 90.4; Nucleated RBC 0 %; Platelet Count 287 10^3/uL (130-400); RBC 3.63 10^6/uL (3.93-5.22); RDW 13.3 % (11.7-14.6); RDW-SD 45.7 fL; WBC 12.93 10^3/uL (4.4-10.8)
--- NOTE | 2021-06-09 17:15 | RT.EKG_ITS ---
APPROVED REPORT Exam: Resting ECG Reason for Exam: pre-op Patient Location: I HR:56 bpm ECG Measurements Heart Rate 56 AXIS ID 168 P 71 QRSd 80 QRS 46 QT 423 T 62 QTc 410 Conclusion Sinus bradycardia...rate< 60 Poor R wave progression, possible old anteroseptal infarct
[2021-06-09 17:20] LABS: Troponin I < 50 ng/L (<or=60)
[2021-06-09 18:04] LABS: Bilirubin Negative (Negative); Blood Trace-lysed (Negative); Clarity Clear (Clear); Glucose Negative (Negative); Ketones 15 mg/dL (Negative); Leukocyte Esterase Negative (Negative); Nitrite Negative (Negative); Urobilinogen 0.2 EU/dL (Up TO 0.2)
[2021-06-09 18:28] LABS: Bacteria Few HPF (Negative); C & S Indicated? No; Casts Negative LPF (Negative); Crystals Negative HPF (Negative); Epithelial Cells Few HPF (Negative); Mucus Negative (Negative); WBC 0-2 HPF (0-5)
[2021-06-09] MEDS: amLODIPine 2.5 MG TAB PO (19:29)
[2021-06-09] MEDS: Acetaminophen 325 MG TAB PO (19:29)
[2021-06-09 23:37] LABS: COVID-19 PCR Negative (Negative)
[2021-06-10] VITALS (17 sets, daily range): BP systolic 84–144; BP diastolic 50–74; PULSE 54–85; RESP 12–19; TEMP 36.1–37.7; O2SAT 93–98; BMI 21.6
[2021-06-10] MEDS: Acetaminophen 500 MG TAB 1000 MG PO (02:22)
[2021-06-10 07:18] LABS: Abs Immature Grans 0.02 10^3/uL (0.0-0.06); Absolute Basophil Count 0.04 10^3/uL (0.0-0.2); Absolute Eosinophil Count 0.08 10^3/uL (0.0-0.7); Absolute Lymphocyte Count 0.98 10^3/uL (1.2-3.4); Absolute Monocyte Count 0.64 10^3/uL (0.1-0.8); Absolute Neutrophil Count 4.91 10^3/uL (1.2-6.7); Basophils % 0.6; Eosinophils % 1.2; HCT 28.4 % (36.0-46.0); HGB 9.5 g/dL (11.2-15.7); Immature Grans % 0.3; Lymphocytes % 14.7; MCH 30.8 pg (27.0-33.0); MCHC 33.5 % (32.0-36.0); MCV 92.2 fL (80-95); MPV 9.2 fL (8.0-11.0); Monocytes % 9.6; Neutrophils % 73.6; Nucleated RBC 0 %; Platelet Count 239 10^3/uL (130-400); RBC 3.08 10^6/uL (3.93-5.22); RDW 13.4 % (11.7-14.6); RDW-SD 45.5 fL; WBC 6.67 10^3/uL (4.4-10.8)
[2021-06-10 07:44] LABS: Anion Gap 6.8 mmol/L (3-11); BUN 9 mg/dL (7-18); CO2 25.2 mmol/L (21.0-32.0); CREATININE 0.6 mg/dL (0.55-1.02); Calcium 8.5 mg/dL (8.5-10.1); Chloride 99 mmol/L (98-107); Glucose 105 mg/dL (74-106); Magnesium 1.9 mg/dL (1.8-2.4); Potassium 3.8 mmol/L (3.5-5.1); Sodium 131 mmol/L (136-145)
[2021-06-10] MEDS: Losartan 50 MG TAB 100 MG PO (08:31)
--- NOTE | 2021-06-10 08:45 | DI.RAD_ITS ---
Exam(s) XR HIP LT IN OR EXAM: XR HIP LT IN OR CLINICAL HISTORY: left hip intertroch fracture TECHNIQUE: 2D and realtime digital imaging was performed. CONTRAST MATERIAL: Refer to procedure report. COMPARISON: CR XR FEMUR LT from 06/09/2021 FINDINGS: Fluoroscopy was provided for Dr. Freitas during the performance of a open reduction and internal fixat ion of the femoral fracture. Please refer to the procedure report for complete details. Ka,r=9.78 mGy IMPRESSION: RADIATION DOSE DELIVERED:
--- NOTE | 2021-06-10 09:40 | W.PM.PROGNOT ---
Date of Service Date of service: 06/10/21 Time of Service: 08:00 Assessment and Plan Assessment and plan (1) Closed fracture of left hip: Start date: 06/10/21 Start time: 08:00 Status: Acute Assessment and plan: Scheduled for surgery to day EKG to be done, CT with no acute abnormailited of the lungs She is low risk outcome for surgery NPO since MN Hold chemcial DVT propylaxis Teds and Scds LR @ 30 ml/ hr Multimodalities for pain IS Qualifiers: Encounter type: initial encounter Qualified Code(s): S72.002A - Fracture of unspecified part of neck of left femur, initial encounter for closed fracture (2) HTN (hypertension): Start date: 06/10/21 Start time: 08:00 Status: Chronic Assessment and plan: Continue amlodipine and losartin Qualifiers: Hypertension type: primary hypertension Qualified Code(s): I10 - Essential (primary) hypertension (3) DVT prophylaxis: Start date: 06/10/21 Start time: 08:00 Status: Acute Assessment and plan: hold chemical at this time for surgery Teds and Scds (4) Discharge planning issues: Start date: 06/10/21 Start time: 08:00 Status: Acute Assessment and plan: Home vs Rehab discussed with Dr. Jerez Subjective Subjective Patient reports: no new complaints Interval history since last seen: patient lying in bed, on phone. No complaints of pain. Surgery is at 1130 this am, patient. Exam Const General: cooperative, comfortable and no acute distress Nutritional Appearance: thin Orientation: alert, awake and oriented x3 Eyes Eyelids: eyelids normal Pupils: PERRL EOM: EOM intact bilaterally Neck Neck: normal visual inspection and no JVD Lymphatic: no lymphadenopathy noted Resp Effort & Inspection: normal respiratory effort Auscultation: clear to auscultation bilaterally Cardio Jugular venous pressure: no JVD Rhythm: regular rhythm Heart Sounds: S1 normal GI Auscultation: normal bowel sounds Skin General skin exam: no rashes or lesions noted Neuro General: patient alert, patient awake and patient oriented x3 Cognition: normal cognition Speech: speech normal Gait: normal gait Extrem General: abnormal to inspection Left lower extremity: normal to inspection (patient has LLE external rotation with shortenting,cmst+) Objective Last Vital Signs Temp 36.5 C 01/25/22 07:20 Pulse 54 L 06/10/21 07:20 Resp 14 06/10/21 07:20 BP 144/70 H 06/10/21 07:20 Pulse Ox 97 06/10/21 07:20 Laboratory Results - last 24 hr 06/09/21 06/09/21 06/09/21 12:55 12:55 12:55 WBC 7.20 RBC 4.03 Hgb 12.6 Hct 37.4 MCV 92.8 MCH 31.3 MCHC 33.7 RDW 13.4 Plt Count 334 MPV 9.1 Immature Gran % 0.4 Neutrophils % 75.1 Lymphocytes % 16.0 Monocytes % 6.0 Eosinophils % 1.8 Basophils % 0.7 Nucleated RBC % 0 Absolute Neutrophils 5.41 Absolute Lymphocytes 1.15 L Absolute Monocytes 0.43 Absolute Eosinophils 0.13 Absolute Basophils 0.05 Sodium 132 L 132 L Potassium 3.5 3.5 Chloride 97 L 97 L Carbon Dioxide 24.2 23.0 Anion Gap 10.8 12.0 H BUN 12 14 Creatinine 0.8 0.8 Estimated GFR/1.73 m2 >= 60.00 >= 60.00 Glucose 139 H 139 H Calcium 9.0 9.1 Magnesium 1.8 2.0 Total Bilirubin 0.5 0.5 AST 22 24 ALT 23 27 Alkaline Phosphatase 50 51 Troponin I < 50 Total Protein 7.3 7.3 Albumin 4.1 4.1 Lipase 119 Urine Color Urine Clarity Urine pH Ur Specific [place] Urine Protein Urine Ketones Urine Blood Urine Nitrite Urine Bilirubin Urine Urobilinogen Ur Leukocyte Esterase Urine RBC Urine WBC Ur Epithelial Cells Urine Crystals Urine Bacteria Urine Casts Urine Mucus Ur Culture Indicated? Urine Glucose COVID-19 Source SARS-CoV-2 (PCR) 06/09/21 06/09/21 06/09/21 14:25 16:55 16:55 WBC 12.93 H D RBC 3.63 L Hgb 11.2 Hct 33.4 L MCV 92.0 MCH 30.9 MCHC 33.5 RDW 13.3 Plt Count 287 MPV 9.1 Immature Gran % 0.3 Neutrophils % 90.4 Lymphocytes % 3.6 Monocytes % 5.2 Eosinophils % 0.2 Basophils % 0.3 Nucleated RBC % 0 Absolute Neutrophils 11.69 H Absolute Lymphocytes 0.47 L Absolute Monocytes 0.67 Absolute Eosinophils 0.03 Absolute Basophils 0.04 Sodium Potassium Chloride Carbon Dioxide Anion Gap BUN Creatinine Estimated GFR/1.73 m2 Glucose Calcium Magnesium Total Bilirubin AST ALT Alkaline Phosphatase Troponin I < 50 Total Protein Albumin Lipase Urine Color Urine Clarity Urine pH Ur Specific [place] Urine Protein Urine Ketones Urine Blood Urine Nitrite Urine Bilirubin Urine Urobilinogen Ur Leukocyte Esterase Urine RBC Urine WBC Ur Epithelial Cells Urine Crystals Urine Bacteria Urine Casts Urine Mucus Ur Culture Indicated? Urine Glucose COVID-19 Source Nasal/Nares SARS-CoV-2 (PCR) Negative 06/09/21 06/10/21 06/10/21 17:50 07:00 07:00 WBC 6.67 D RBC 3.08 L Hgb 9.5 L Hct 28.4 L MCV 92.2 MCH 30.8 MCHC 33.5 RDW 13.4 Plt Count 239 MPV 9.2 Immature Gran % 0.3 Neutrophils % 73.6 Lymphocytes % 14.7 Monocytes % 9.6 Eosinophils % 1.2 Basophils % 0.6 Nucleated RBC % 0 Absolute Neutrophils 4.91 Absolute Lymphocytes 0.98 L Absolute Monocytes 0.64 Absolute Eosinophils 0.08 Absolute Basophils 0.04 Sodium 131 L Potassium 3.8 Chloride 99 Carbon Dioxide 25.2 Anion Gap 6.8 BUN 9 Creatinine 0.6 Estimated GFR/1.73 m2 >= 60.00 Glucose 105 Calcium 8.5 Magnesium 1.9 Total Bilirubin AST ALT Alkaline Phosphatase Troponin I Total Protein Albumin Lipase Urine Color Yellow Urine Clarity Clear Urine pH 6.0 Ur Specific [place] 1.020 Urine Protein Negative Urine Ketones 15 H Urine Blood Trace-lysed H Urine Nitrite Negative Urine Bilirubin Negative Urine Urobilinogen 0.2 Ur Leukocyte Esterase Negative Urine RBC 3-5 H Urine WBC 0-2 Ur Epithelial Cells Few Urine Crystals Negative Urine Bacteria Few Urine Casts Negative Urine Mucus Negative Ur Culture Indicated? No Urine Glucose Negative COVID-19 Source SARS-CoV-2 (PCR)
--- NOTE | 2021-06-10 10:34 | ANES.PREOP_ITS ---
General Info Date of Service Date Performed: 06/10/21 Height: 4 ft 11.84 in Weight: 49.895 kg Body Mass Index (BMI): 21.6 Surgical Procedure: Operation Date: 06/10/21 12:30 Proposed Procedures Side Surgeon p Hip TFNA, Short Nail Left David Freitas MD Actual Procedures Side Surgeon p Hip TFNA, Short Nail Left David Freitas MD Meds Allergies and Home Medications Allergies Allergy/AdvReac Type Severity Reaction Status Date / Time No Known Allergies Allergy Unverified 06/09/21 15:00 Home Medication Medication Instructions Recorded amlodipine 2.5 mg PO QAM 08/19/20 losartan 100 mg PO QPM 08/19/20 Current Visit Medications: Current Medications Generic Name Dose Route Start Last Admin Trade Name Freq PRN Reason Stop Dose Admin Acetaminophen 1,000 mg 06/10/21 01:11 06/10/21 02:22 Acetaminophen 500 Mg Tab PO 1,000 mg Q6H PRN PRN Administration Amlodipine Besylate 2.5 mg 06/09/21 20:00 06/09/21 19:29 Amlodipine 2.5 Mg Tab PO 2.5 mg QPM KASHMIR Administration Dimethicone/Zinc Oxide 0 gm 06/09/21 14:36 Roxi Protect Cream 142 Gm Tube TP PRN PRN Docusate Sodium 100 mg 06/09/21 14:36 Docusate Sodium 100 Mg Cap PO TID PRN PRN Sodium Chloride 500 mls @ 0 mls/hr 06/09/21 14:36 Saline 500ml Bag IV PRN PRN As Directed Ringer's Solution 1,000 mls @ 30 mls/hr 06/09/21 14:45 06/09/21 16:51 IV 30 mls/hr INFUSION KASHMIR Administration Cefazolin Sodium/Dextrose 2 gm in 50 mls @ 100 mls/hr 06/10/21 07:15 Ancef Duplex IVPB PREOP KASHMIR Tranexamic Acid 1,000 mg/ 60 mls @ 360 mls/hr 06/10/21 07:15 Sodium Chloride IVPB PREOP KASHMIR IV Miscellaneous Supplies 1 each 06/09/21 14:45 Iv Access IV DIRECTED KASHMIR Losartan Potassium 100 mg 06/10/21 08:30 06/10/21 08:31 Losartan 50 Mg Tab PO 100 mg DAILY KASHMIR Administration Magnesium Hydroxide 30 ml 06/09/21 14:36 Milk Of Magnesia 30 Ml Cup PO DAILY PRN PRN Morphine Sulfate 2 mg 06/09/21 14:43 Morphine 2 Mg/Ml Syr IVP Q3H PRN PRN Polyethylene Glycol 17 gm 06/09/21 14:36 Polyethylene Glycol 3350 17 Gm Packet PO DAILY PRN PRN Constipation Sodium Chloride 0 ml 06/09/21 14:36 Normal Saline Flush 10 Ml Syr IVP PRN PRN PFSH Active Problems Active Problems: Problem Status Onset Code Closed fracture of left hip 06/09/21 S72.002A Colitis K52.9 Discharge planning issues Z02.9 DVT prophylaxis Z29.9 Fatigue R53.83 Decreased appetite R63.0 HTN (hypertension) I10 Medical History Medical History HTN (hypertension) Tobacco Smoking/Tobacco Use Status: Former Tobacco Use Alcohol Alcohol Intake: former Substance Use Substance use: Daily Substance use type: marijuana Vital Signs and Lab Results Vital Signs Most Recent Vital Signs in EMR: Most Recent Vital Signs Temp Pulse Resp BP Pulse Ox 36.5 C 54 L 14 144/70 H 97 06/10/21 07:20 06/10/21 07:20 06/10/21 07:20 06/10/21 07:20 06/10/21 07:20 Lab Results Result Diagrams: 06/10/21 07:00 06/10/21 07:00 Blood Type / Crossmatch: No Data to Display Complete Blood Count: White Blood Count 6.67 10^3/uL (4.4-10.8) 06/10/21 07:00 06/10/21 Red Blood Count 3.08 10^6/uL (3.93-5.22) L 06/10/21 07:00 06/10/21 Hemoglobin 9.5 g/dL (11.2-15.7) L 06/10/21 07:00 06/10/21 Hematocrit 28.4 % (36.0-46.0) L 06/10/21 07:00 06/10/21 Platelet Count 239 10^3/uL (130-400) 06/10/21 07:00 06/10/21 Complete Metabolic Panel: Sodium Level 131 mmol/L (136-145) L 06/10/21 07:00 06/10/21 Potassium Level 3.8 mmol/L (3.5-5.1) 06/10/21 07:00 06/10/21 Chloride Level 99 mmol/L (98-107) 06/10/21 07:00 06/10/21 Carbon Dioxide Level 25.2 mmol/L (21.0-32.0) 06/10/21 07:00 06/10/21 Blood Urea Nitrogen 9 mg/dL (7-18) 06/10/21 07:00 06/10/21 Creatinine 0.6 mg/dL (0.55-1.02) 06/10/21 07:00 06/10/21 Estimated GFR/1.73 m2 >= 60.00 (mL/min/1.73m2) 06/10/21 07:00 06/10/21 Magnesium Level 1.9 mg/dL (1.8-2.4) 06/10/21 07:00 06/10/21 Calcium Level 8.5 mg/dL (8.5-10.1) 06/10/21 07:00 06/10/21 Albumin 4.1 g/dL (3.4-5.0) 06/09/21 12:55 06/09/21 Glucose Level 105 mg/dL (74-106) 06/10/21 07:00 06/10/21 Liver Function Panel: Alanine Aminotransferase (ALT/SGPT) 27 U/L (14-59) 06/09/21 12:55 06/09/21 Aspartate Amino Transf (AST/SGOT) 24 U/L (15-37) 06/09/21 12:55 06/09/21 Coagulation Panel: No Data to Display Cardiac Panel: Troponin I < 50 ng/L (<or=60) 06/09/21 Arterial Blood Gas: No Data to Display Venous Blood Gas: No Data to Display Pancreas Panel: Lipase 119 U/L (73-393) 06/09/21 12:55 06/09/21 Thyroid Panel: No Data to Display Infectious Disease: Coronavirus (COVID-19)(PCR) Negative (Negative) 06/09/21 14:25 06/09/21 Coronavirus 2019 Source Nasal/Nares 06/09/21 14:25 06/09/21 Blood Cultures: No Data to Display Toxicology Panel: No Data to Display Imaging and Studies Imaging and Studies Study information below may be from another EMR and interpreted by another provider. Please see original notes in EMR for more complete details. EKG Summary: 06/10/2021: Exam: Resting ECG Reason for Exam: pre-op Patient Location: I HR:56 bpm ECG Measurements Heart Rate 56 AXIS SD 168 P 71 QRSd 80 QRS 46 QT 423 T62 QTc 410 Conclusion Sinus bradycardia...rate< 60 Poor R wave progression, possible old anteroseptal infarct Echocardiogram Summary: 08/19/2020: Conclusion Left Ventricle : The left ventricle is normal size. The left ventricular systolic function is normal. The left ventricular ejection fraction is within the normal range. There is normal left ventricular wall thickness. There is nor mal LV segmental wall motion. The left ventricular diastolic function is normal. LVEF is 65-70%. Right Ventricle : The right ventricle is normal size. The right ventricular systolic function is normal. The RVSP is 23.0mmHg. Atria : The left atrium size is normal. The right atrium size is normal. Aortic Valve : The aortic valve is normal in structure. Aortic valve is trileaflet. Mild aortic regurgitation. There is no aortic valvular stenosis. Mitral Valve : The mitral valve is normal in structure. Mild mitral regurgitation. No evidence of mitral valve stenosis. Great Vessels : The aortic root is normal in size. The ascending aorta is moderately dilated. Aortic arch is normal in caliber. IVC is normal in size and collapses >50% with inspiration. Pericardium : Small circumferential pericardial effusion without evidence of tamponade. Anesthesia Assessment and Plan Anesthesia History Personal History: No History of Anesthesia Complications Family History: No Family History of Anesthesia Complications Exercise Tolerance Exercise Tolerance: Metabolic Equivalents>4 Pertinent Negatives Pertinent Negatives: No Symptoms of GERD, No Major Cardiovascular Symptoms or Complaints and No Major Pulmonary Symptoms or Complaints Cardiac & Pulmonary Exam Cardiac Exam: Normal S1/S2 Heart Sounds Pulmonary Exam: Clear Bilateral Breath Sounds Implantable Cardiac Device Does patient have a Pacemaker or an ICD?: No Airway Exam Known Difficult Airway: No Mallampati Class: 1 Mouth Opening: Normal (> 3cm) Thyromental Distance: Greater than 3 cm Neck Range of Motion: Full ROM Neck Circumference: Normal Teeth Condition: Normal Dentition ASA Classification ASA Score: ASA 2 Emergency Case?: No NPO Status NPO Status: NPO Clears >2 hours, Solids >8 hours Anesthesia Plan Resuscitation Status: Full Code Anesthesia Technique: General Anesthesia Airway Planned: Endotracheal Tube Monitors Used: Standard Monitors
[2021-06-10] MEDS: MORPHine 2 MG/ML SYR IVP ×2 (10:42→18:01)
[2021-06-10] MEDS: Normal Saline Flush 10 ML SYR IVP (10:44)
--- NOTE | 2021-06-10 11:25 | OCONE_ITS ---
Date of service: 06/10/21 Time of Service: 11:30 History of Present Illness Narrative: Left hip pain deformity after skiing accident yesterday. No pre- existing hip issues. No other injuries. Prior ambulated without assistance. Consult Reason Displaced left hip fracture Assessment and Plan Assessment and plan (1) Closed fracture of left hip: Status: Acute Assessment and plan: 76 year old female with left hip displaced intertroch fracture Medical admission and optimization for surgery: Left hip intramedullary nailing The risks, benefits, and alternatives were thoroughly discussed with the patient. Patient was counseled regarding pain management, expected postoperative course, and recovery timeline. All questions were answered. Informed consent was obtained. Multimodal pain control, bedrest, NPO, hold chemo ppx pending OR, hernandez, and b/l SCDs Will d/w medical team Qualifiers: Encounter type: initial encounter Qualified Code(s): S72.002A - Fracture of unspecified part of neck of left femur, initial encounter for closed fracture Review of Systems All systems reviewed & are unremarkable except as noted in HPI and below PFSH All Active Problems Closed fracture of left hip (Acute 06/09/21) Colitis (Acute) Discharge planning issues (Acute) DVT prophylaxis (Acute) Fatigue (Acute) Decreased appetite (Acute) HTN (hypertension) (Chronic) Medical History HTN (hypertension) Social History Smoking/Tobacco Use Status: Former Tobacco Use Smoking risk assessment performed?: Yes Alcohol Intake: former Drug use: Daily Substance use type: marijuana Do you feel safe at home: Yes Do you feel safe in your relationship?: Yes Exam Narrative Exam Narrative: No acute distress resting in hospital bed. No cough, no respiratory issues; breathing comfortably on room air No chest pain, left lower extremity distal pulses palpable Left hip and extremity shortened externally rotated with significant discomfort on attempted motion, gentle logroll only marginally tested. Thigh compartments soft. No bruising, moderate early edema. Manger of extremities demonstrates active motion without difficulty. Results Last Vital Signs Temp 97.7 F 06/09/21 12:49 Pulse 69 06/09/21 12:49 Resp 16 06/09/21 12:49 BP 177/67 H 06/09/21 12:49 Pulse Ox 99 06/09/21 12:49 Labs Result diagrams: 06/10/21 07:00 06/10/21 07:00 Labs: Laboratory Results - last 24 hr 06/09/21 06/09/21 12:55 12:55 WBC 7.20 RBC 4.03 Hgb 12.6 Hct 37.4 MCV 92.8 MCH 31.3 MCHC 33.7 RDW 13.4 Plt Count 334 MPV 9.1 Immature Gran % 0.4 Neutrophils % 75.1 Lymphocytes % 16.0 Monocytes % 6.0 Eosinophils % 1.8 Basophils % 0.7 Nucleated RBC % 0 Absolute Neutrophils 5.41 Absolute Lymphocytes 1.15 L Absolute Monocytes 0.43 Absolute Eosinophils 0.13 Absolute Basophils 0.05 Sodium 132 L Potassium 3.5 Chloride 97 L Carbon Dioxide 24.2 Anion Gap 10.8 BUN 12 Creatinine 0.8 Estimated GFR/1.73 m2 >= 60.00 Glucose 139 H Calcium 9.0 Magnesium 1.8 Total Bilirubin 0.5 AST 22 ALT 23 Alkaline Phosphatase 50 Total Protein 7.3 Albumin 4.1 Lipase 119
--- NOTE | 2021-06-10 11:37 | PGE_ITS ---
Date of Service Date of service: 06/10/21 Time of Service: 14:00 Assessment and Plan Assessment and plan (1) Closed fracture of left hip: Status: Acute Assessment and plan: 76-year-old female postop day #0 status post left hip IMN Complete 24 hours postoperative antibiotics Discontinue Wilson catheter postop day #1 Pain control-Multimodal Physical therapy ordered: Weightbearing as tolerated with assist device May start chemical DVT prophylaxis tomorrow assuming hemodynamically stable- lower risk home ambulatory patient, aspirin 81 mg twice daily x30 days appropriate Continue mechanical DVT prophylaxis with SCDs and/or CARISA hose Discharge when medical appropriate Follow-up with Dr. Freitas outpatient [facility] in 2 to 3 weeks Appreciate medical management Qualifiers: Encounter type: initial encounter Qualified Code(s): S72.002A - Fracture of unspecified part of neck of left femur, initial encounter for closed fracture Subjective Subjective Patient reports: no new complaints Exam Narrative Exam Narrative: Acute distress. Resting in PACU. Breathing comfortably on room air. Left hip passive range of motion without significant discomfort. Distal pulse palpable. Compartment thigh compressible. Dressings clean dry and intact. Objective Last Vital Signs Temp 99.9 F H 06/10/21 10:52 Pulse 59 L 06/10/21 10:52 Resp 16 06/10/21 10:52 BP 132/74 06/10/21 10:52 Pulse Ox 96 06/10/21 10:52 Laboratory Results - last 24 hr 06/09/21 06/09/21 06/09/21 12:55 12:55 12:55 WBC 7.20 RBC 4.03 Hgb 12.6 Hct 37.4 MCV 92.8 MCH 31.3 MCHC 33.7 RDW 13.4 Plt Count 334 MPV 9.1 Immature Gran % 0.4 Neutrophils % 75.1 Lymphocytes % 16.0 Monocytes % 6.0 Eosinophils % 1.8 Basophils % 0.7 Nucleated RBC % 0 Absolute Neutrophils 5.41 Absolute Lymphocytes 1.15 L Absolute Monocytes 0.43 Absolute Eosinophils 0.13 Absolute Basophils 0.05 Sodium 132 L 132 L Potassium 3.5 3.5 Chloride 97 L 97 L Carbon Dioxide 24.2 23.0 Anion Gap 10.8 12.0 H BUN 12 14 Creatinine 0.8 0.8 Estimated GFR/1.73 m2 >= 60.00 >= 60.00 Glucose 139 H 139 H Calcium 9.0 9.1 Magnesium 1.8 2.0 Total Bilirubin 0.5 0.5 AST 22 24 ALT 23 27 Alkaline Phosphatase 50 51 Troponin I < 50 Total Protein 7.3 7.3 Albumin 4.1 4.1 Lipase 119 Urine Color Urine Clarity Urine pH Ur Specific [place] Urine Protein Urine Ketones Urine Blood Urine Nitrite Urine Bilirubin Urine Urobilinogen Ur Leukocyte Esterase Urine RBC Urine WBC Ur Epithelial Cells Urine Crystals Urine Bacteria Urine Casts Urine Mucus Ur Culture Indicated? Urine Glucose COVID-19 Source SARS-CoV-2 (PCR) 06/09/21 06/09/21 06/09/21 14:25 16:55 16:55 WBC 12.93 H D RBC 3.63 L Hgb 11.2 Hct 33.4 L MCV 92.0 MCH 30.9 MCHC 33.5 RDW 13.3 Plt Count 287 MPV 9.1 Immature Gran % 0.3 Neutrophils % 90.4 Lymphocytes % 3.6 Monocytes % 5.2 Eosinophils % 0.2 Basophils % 0.3 Nucleated RBC % 0 Absolute Neutrophils 11.69 H Absolute Lymphocytes 0.47 L Absolute Monocytes 0.67 Absolute Eosinophils 0.03 Absolute Basophils 0.04 Sodium Potassium Chloride Carbon Dioxide Anion Gap BUN Creatinine Estimated GFR/1.73 m2 Glucose Calcium Magnesium Total Bilirubin AST ALT Alkaline Phosphatase Troponin I < 50 Total Protein Albumin Lipase Urine Color Urine Clarity Urine pH Ur Specific [place] Urine Protein Urine Ketones Urine Blood Urine Nitrite Urine Bilirubin Urine Urobilinogen Ur Leukocyte Esterase Urine RBC Urine WBC Ur Epithelial Cells Urine Crystals Urine Bacteria Urine Casts Urine Mucus Ur Culture Indicated? Urine Glucose COVID-19 Source Nasal/Nares SARS-CoV-2 (PCR) Negative 06/09/21 06/10/21 06/10/21 17:50 07:00 07:00 WBC 6.67 D RBC 3.08 L Hgb 9.5 L Hct 28.4 L MCV 92.2 MCH 30.8 MCHC 33.5 RDW 13.4 Plt Count 239 MPV 9.2 Immature Gran % 0.3 Neutrophils % 73.6 Lymphocytes % 14.7 Monocytes % 9.6 Eosinophils % 1.2 Basophils % 0.6 Nucleated RBC % 0 Absolute Neutrophils 4.91 Absolute Lymphocytes 0.98 L Absolute Monocytes 0.64 Absolute Eosinophils 0.08 Absolute Basophils 0.04 Sodium 131 L Potassium 3.8 Chloride 99 Carbon Dioxide 25.2 Anion Gap 6.8 BUN 9 Creatinine 0.6 Estimated GFR/1.73 m2 >= 60.00 Glucose 105 Calcium 8.5 Magnesium 1.9 Total Bilirubin AST ALT Alkaline Phosphatase Troponin I Total Protein Albumin Lipase Urine Color Yellow Urine Clarity Clear Urine pH 6.0 Ur Specific [place] 1.020 Urine Protein Negative Urine Ketones 15 H Urine Blood Trace-lysed H Urine Nitrite Negative Urine Bilirubin Negative Urine Urobilinogen 0.2 Ur Leukocyte Esterase Negative Urine RBC 3-5 H Urine WBC 0-2 Ur Epithelial Cells Few Urine Crystals Negative Urine Bacteria Few Urine Casts Negative Urine Mucus Negative Ur Culture Indicated? No Urine Glucose Negative COVID-19 Source SARS-CoV-2 (PCR)
--- NOTE | 2021-06-10 11:37 | ROE_ITS ---
Date of service: 06/10/21 Time of Service: 13:03 Operative Note Operative Note DATE OF PROCEDURE: 06/10/21 PRE-OP DIAGNOSIS: Left hip intertrochanteric fracture POST-OP DIAGNOSIS: same PROCEDURE: Left hip intramedullary nail, CPT #67022 SURGEON: David Freitas COMMERCIAL HVAC TECHNICIAN: Erin Perales ANESTHESIA TYPE: Local By Surgeon and General LMA/ETT Refer to Anesthesia Record ESTIMATED BLOOD LOSS: 15 COMPLICATIONS: None Patient was transported to: PACU Patient's condition: stable Implants: Synthes TFNA [id number] 130 deg, 100 mm TFNA helical blade, 32 mm 5.0mm distal locking screw Indications: Please see medical record for details Procedure Description: In the operating room, general anesthesia was induced. The patient was transferred and positioned supine on the fracture table. All bony prominences were well padded. Pre-operative antibiotics were administered. C-arm fluoroscopy was used to confirm appropriate provisional fracture reduction with traction and internal rotation. Anterior posterior directed force was also used to correct flexion and posterior sag. Lateral to medial directed force helped align medial calcar displacement and lesser trochanter. The correct patient, procedure, and side of the procedure were all verified prior to incision. Local anesthetic with epinephrine was infiltrated about the planned start point as well as later about the lateral entry site for cephalomedullary and distal locking screws. C-arm fluoroscopy was used to locate the appropriate start point for the guide wire on the tip of the greater trochanter. This guide wire was advanced centrally down the proximal femur to the level of the lessor trochanter. Lateral images confirmed appropriate start point on the trochanter. Next the incision was extended about the guide wire to accommodate the nailing jig and this incision was carried down through the fascia and spread apart for ease of future instrument passage. The entry reamer was inserted along with the soft tissue protection tube and this reamer was used to open the proximal femur. The entry reamer, soft tissue protector, and guidewire were removed from the proximal femur. The appropriately selected nail was assembled on the back table to the jig and tested to ensure proper passage of the cephalomedullary drill. This implant was manually inserted into the proximal femur, but could only be advanced partially due to diminutive proximal femur canal. A ball-tipped guidewire was passed down the femoral canal and sequential reaming done from 9 mm to 12.5 mm with good chatter at 12 and 12.5 mm about the proximal femoral metadiaphysis. The nail then easily passed down and was advanced to the appropriate level for cephalomedullary fixation. Another incision was made laterally to accommodate the cephalomedullary aiming tube and trochar, which was advanced down to bone. The guide wire was then advanced into the femoral neck and adjusted on AP and lateral fluoroscopy until it was placed near subchondral bone in the center- center position in the femoral head. The depth gauge was used to measure the helical blade length accommodating for depth of guidewire insertion. Next, the drill was used to open the lateral cortex followed by drill about 75 mm of the total length given the good bone quality and the femoral head neck, and the helical blade was advanced to the appropriate depth by gentle mallet blows. The set screw was engaged and backed off 180 degrees to allow for rotationally- controlled sliding and compression. Traction was released, and the fracture was compressed appropriately via the buttress and compression nut on the jig. The cephalomedullary aiming guide was removed. The distal locking screw guide was inserted through another small incision down the bone. The drill was used to drill for this static locking screw and measure the length. The appropriate length screw was then inserted bicortically. The jig was removed from the nail. Final AP and lateral fluoroscopic images were taken and confirmed appropriate fracture reduction and implant placement. All wounds were copiously irrigated. Deep layers were closed using 0 vicryl in an interrupted fashion. Subcutaneous tissue was closed using 2-0 monocryl in a buried interrupted fashion. Skin glue was applied to all incisions. Incisions were covered with Mepilex Band-Aids. The patient awoke from anesthesia without complication and was transferred to the recovery room in stable condition.
[2021-06-10] MEDS: ceFAZolin 2 GM/50 ML BAG IVPB (11:55)
[2021-06-10] MEDS: Bupivacaine 0.25% Pres-Free 30 ML VIAL (12:14)
[2021-06-10] MEDS: fentaNYL 100 MCG/2 ML VIAL IVP ×2 (13:24→13:34)
[2021-06-10] MEDS: Lactated Ringers 1,000 ML 30 ML IV (13:32)
[2021-06-10] MEDS: MORPHine 10 MG/ML VIAL IVP (13:48)
--- NOTE | 2021-06-10 14:30 | INITIAL_ITS ---
- If Service Date Differs Date of service: 06/10/21 Time of Service: 14:31 Care Management Initial Assess REASON FOR HOSPITALIZATION:: Left hip Fx PAST MEDICAL HISTORY/PAST SURGICAL HISTORY:: All Active Problems. Closed fracture of left hip (Acute 06/09/21). Colitis (Acute). Discharge planning issues (Acute). DVT prophylaxis (Acute). Fatigue (Acute). Decreased appetite (Acute). HTN (hypertension) (Chronic). Medical History. HTN (hypertension) PREVIOUS FUNCTIONAL STATUS/SOCIAL/FAMILY SUPPORTS:: Molly lives in [place], [place]. 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 She is independent at baseline. CURRENT FUNCTIONAL STATUS:: Molly was lying in bed when CM met with her. She was pleasant and engaged in conversation, although it was cut short, as her RN arrived stating that she was going to the OR for surgery. CM will continue to follow. ADVANCE DIRECTIVES:: Not on file. Has patient been provided with info about the portal/API?: Yes Did the patient sign up for the portal?: No CODE STATUS:: Full Code INSURANCE COVERAGE / FINANCIAL ISSUES:: MCR/ BCBS CURRENT HOME/COMMUNITY SERVICES/EQUIPMENT:: No known equipment or services. PRIMARY CARE PHYSICIAN:: Unknown, not local. POTENTIAL DISCHARGE NEEDS:: Evaluations for further needs, follow up appointments. PATIENT/FAMILY EDUCATION NEEDS:: Review discharge instructions regarding activity levels and medications, discussion of self care needs including ask me three. ANTICIPATED BARRIERS TO DISCHARGE:: None identified at this time. TRANSPORTATION:: Via private vehicle by family/friends. PLAN:: Anticipate Molly will return home when medically cleared by MD. Her friend will drive her home via private vehicle when ready. She will follow up with her PCP and discharge plan of care. CM will continue to follow.
[2021-06-10] MEDS: traMADol 50 MG TAB PO ×2 (14:48→20:28)
--- NOTE | 2021-06-10 15:16 | W.ANESPOSTOP ---
Postoperative Evaluation Date, Time and Location Date Performed: 06/10/21 Time Performed: 14:50 Patient Location: Med/Surg Vital Signs Most Recent Imported Vital Signs: Most Recent Vital Signs Temp Pulse Resp BP Pulse Ox 36.6 C 65 16 110/64 93 06/10/21 14:49 06/10/21 14:49 06/10/21 14:49 06/10/21 14:49 06/10/21 14:49 Pain Score Most Recent Pain Score: Most Recent Pain Score Pain Level [Left hip] 6 06/10/21 05:28 Pain Level [Left Hip] 6 06/09/21 14:01 Pain Level 3 06/10/21 14:49 Assessment Mental Status: Awake (Alert & Oriented to Patient Baseline) Airway and Respiratory Function: Patent airway with normal (patient baseline) respiratory exam Cardiovascular Function: Hemodynamically Stable Hydration Status: Adequately Hydrated Nausea & Vomiting: No Nausea or Vomiting Pain: Pain is tolerable per patient Peripheral Nerve Block: Patient did not receive a nerve block
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
[2021-06-10] MEDS: Lactated Ringers 1,000 ML 1000 ML IV (17:02)
[2021-06-10] MEDS: ceFAZolin 1 GM/50 ML BAG IVPB (20:03)
[2021-06-11 03:40] VITALS: BP 98/59; PULSE 63; RESP 17; TEMP 36.2; O2SAT 96
[2021-06-11] MEDS: ceFAZolin 1 GM/50 ML BAG IVPB ×2 (03:53→11:46)
[2021-06-11] MEDS: traMADol 50 MG TAB PO ×2 (03:54→10:18)
[2021-06-11 08:08] VITALS: BP 139/73; PULSE 62; RESP 17; TEMP 36.3; O2SAT 97
[2021-06-11] MEDS: Aspirin E.C. 81 MG TABEC PO (08:18)
--- NOTE | 2021-06-11 08:32 | W.PM.PROGNOT ---
Date of Service Date of service: 06/11/21 Time of Service: 08:00 Assessment and Plan Assessment and plan (1) Closed fracture of left hip: Start date: 06/11/21 Start time: 08:00 Status: Acute Assessment and plan: POD 1 doing ok. Continue multiple modalitidies for pain, gerson tylenol continue PT, she would like to go home with HH PT IS Qualifiers: Encounter type: initial encounter Qualified Code(s): S72.002A - Fracture of unspecified part of neck of left femur, initial encounter for closed fracture (2) HTN (hypertension): Start date: 06/11/21 Start time: 08:00 Status: Chronic Assessment and plan: Hold current medications d/t hypotension Qualifiers: Hypertension type: primary hypertension Qualified Code(s): I10 - Essential (primary) hypertension (3) DVT prophylaxis: Start date: 06/11/21 Start time: 08:00 Status: Acute Assessment and plan: ASA following surgery Teds and Scds (4) Discharge planning issues: Start date: 06/11/21 Start time: 08:00 Status: Acute Assessment and plan: Home with PT discussed with Dr. Jerez Subjective Subjective Patient reports: still having pain Interval history since last seen: Having some pain to surgical side. Tyelnol gerson for pain. Asa started. She plans to go home on discharge to a friends house with PT. Exam Const General: cooperative, comfortable and no acute distress Nutritional Appearance: thin Orientation: alert, awake and oriented x3 Eyes Eyelids: eyelids normal Pupils: PERRL EOM: EOM intact bilaterally Neck Neck: normal visual inspection and no JVD Lymphatic: no lymphadenopathy noted Resp Effort & Inspection: normal respiratory effort Auscultation: clear to auscultation bilaterally Cardio Jugular venous pressure: no JVD Rhythm: regular rhythm Heart Sounds: S1 normal GI Auscultation: normal bowel sounds Skin General skin exam: no rashes or lesions noted Neuro General: patient alert, patient awake and patient oriented x3 Cognition: normal cognition Speech: speech normal Gait: normal gait Extrem General: normal to inspection Left lower extremity: edema Details: non-pitting and hip/thigh; abnormal to inspection Objective Last Vital Signs Temp 36.3 C L 06/11/21 08:08 Pulse 62 06/11/21 08:08 Resp 17 06/11/21 08:08 BP 139/73 06/11/21 08:08 Pulse Ox 97 06/11/21 08:08
[2021-06-11 09:33] LABS: Abs Immature Grans 0.03 10^3/uL (0.0-0.06); Absolute Basophil Count 0.04 10^3/uL (0.0-0.2); Absolute Eosinophil Count 0.05 10^3/uL (0.0-0.7); Absolute Lymphocyte Count 1.01 10^3/uL (1.2-3.4); Absolute Monocyte Count 0.42 10^3/uL (0.1-0.8); Absolute Neutrophil Count 5.56 10^3/uL (1.2-6.7); Basophils % 0.6; Eosinophils % 0.7; HCT 26.4 % (36.0-46.0); HGB 8.7 g/dL (11.2-15.7); Immature Grans % 0.4; Lymphocytes % 14.2; MCH 30.5 pg (27.0-33.0); MCV 92.6 fL (80-95); MPV 9.8 fL (8.0-11.0); Monocytes % 5.9; Neutrophils % 78.2; Nucleated RBC 0 %; Platelet Count 221 10^3/uL (130-400); RBC 2.85 10^6/uL (3.93-5.22); RDW 13.6 % (11.7-14.6); RDW-SD 46.4 fL; WBC 7.11 10^3/uL (4.4-10.8)
[2021-06-11 09:43] LABS: Anion Gap 8.1 mmol/L (3-11); BUN 9 mg/dL (7-18); CO2 25.9 mmol/L (21.0-32.0); CREATININE 0.7 mg/dL (0.55-1.02); Calcium 8.6 mg/dL (8.5-10.1); Chloride 97 mmol/L (98-107); Glucose 132 mg/dL (74-106); Potassium 4.1 mmol/L (3.5-5.1); Sodium 131 mmol/L (136-145)
[2021-06-11] MEDS: Acetaminophen 325 MG TAB 650 MG PO (10:19)
[2021-06-11 11:03] VITALS: BP 110/70; PULSE 61; RESP 17; TEMP 36.8; O2SAT 100
[2021-06-11] MEDS: Normal Saline Flush 10 ML SYR IVP (11:46)
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
--- NOTE | 2021-06-11 12:51 | PDOC.HHF2F_ITS ---
Home Health Certification Home Health Certification: 1. Encounter Date and Reason I certify that Molly Meek was seen by Trena Hopkins on 06/11/21 and that I had a [id number] encounter with this patient that meets the physician face to face encounter requirements. 2. Clinical Findings Supporting Skilled Need and Homebound Status I certify that home health services are medically necessary, include either intermittent assisted and/or physical/speech therapy, and that this patient is homebound in that absences from the home require considerable and taxing effort and are infrequent or of short duration, or are attributable to the need to receive medical care. [X] (a) Attached documentation from encounter provides clinical findings supporting skilled need and homebound status (including what assistance patient requires to leave the home). The encounter with the patient was in whole, or in part, for the following medical condition, which is the primary reason for home health care: Left Hip FX Physical Therapy: Patient would benenfit from PT and OT after having hip surgury to help her with her ADL and gain strenght and mobilty. Homebound: Unable to leave home without assistance. 3. Certification and Authentication I certify that I composed the above information based on my clinical judgement relating to this patient's medical condition and, if applicable, clinical findings communicated to me by the NPP or inpatient physician who performed the Home Health Referral. All further orders will be obtained through out of state___(Community Based Physician - PCP)
--- NOTE | 2021-06-11 13:15 | PT.INTREAT ---
Date of service: 06/11/21 Time of Service: 09:13 PT Notes Visit Reasons: Left Hip FX Inpatient Physical Therapy Treatment Note [facility] Date: 06/11/2021 PRECAUTIONS: Activity as tolerated, Fall, WBAT L SUBJECTIVE: Molly states that she is feeling better today and is hopeful that she will be discharged later today. She states that she plans to stay with a friend that will help her. She is pleasant and agreeable to participating in PT. OBJECTIVE: PAIN: Patient c/o L hip pain with ther ex completion and transfers BED MOBILITY/TRANSFERS Supine-sit: I with HOB flat Sit-stand: SBA in a.m.; S in p.m. Stand-sit: SBA in a.m.; S in p.m. GAIT Assistive Device: FWW Weight bearing: WBAT L Assist: SBA Distance: 20' in a.m.; 30' in p.m. Deviation: Slow pacing, antalgic gait, cues for FWW management THEREX: Patient was instructed in a LE strengthening and stabilization program, completed in both seated and supine positions, as per flow sheet. Patient requires assist for hip abduction exercise. STAIRS: Up/down 3x4 and 2x6 using B rails and a step-to pattern with SBA ASSESSMENT: Patient tolerated session with some complaint of L hip pain with ther ex and transfers. She was able to tolerate a progression in gait distance with FWW support and SBA, although requires cueing for FWW management and demonstrates an antalgic gait pattern. PLAN: Patient to discharge to home later today, per provider. Recommend follow up with PT/OT. TREATMENT CODE/TIME: Session 1: 27 minutes; [id number], [id number] (09:13) Session 2: 13 minutes; [id number] (12:34)
--- NOTE | 2021-06-11 15:27 | CHAPLAIN ---
Molly was standing up when I visited. She told me she is going home today, and was clearly happy about that. It was a brief visit.
[2021-06-11 15:35] VITALS: BP 124/72; PULSE 65; RESP 18; TEMP 36.9; O2SAT 96
--- NOTE | 2021-06-11 15:56 | PDOC.CMDIS ---
- If Service Date Differs Date of service: 06/11/21 Time of Service: 15:56 LACE Index Scoring Tool - Questions: Length of Stay (in days): 2 Acuity (Admit via E.D.?): Yes E.D. Visits: 2 - Answers: Total Score: 7 Risk of Readmission: Low Risk Care Management Discharge Reason for Hospitalization: Left hip Fx Discharge Plan: Molly will return home today with new orders for PT, OT. CM informed [facility] of her discharge today. Her friend will drive her home via private vehicle. She will follow up with her PCP and discharge plan of care. She is happy to be going home. Patient/Family Education Needs: Review discharge instructions regarding activity levels and medications, discussion of self care needs including ask me three. Services Needed at Discharge: Home Health Care Services (PT, OT)
--- NOTE | 2021-06-12 08:43 | PT.INDS ---
Date of service: 06/12/21 PT Notes Visit Reasons: Left Hip FX Physical Therapy Inpatient Discharge Summary Date: June 12, 2021 Dates of Service: 06/10/2021 through 06/11/2021 This is a clinical summary of care provided for the duration of dates listed above. No charge was made in the completion of this documentation. Referring Doctor: David Freitas MD PT Orders: PT CONSULT: Status post Ortho surgery. WBAT with assistive device L LE. Precautions: Fall. Standard. WBAT on L LE with AD. Patient Profile/Admitting Diagnosis: Molly is a 76-year-old female status post intramedullary nailing of left intertrochanteric fracture sustained from a mechanical fall during a skiing activity. PMHX: All Active Problems (Updated 06/10/21 @ 09:36 by Trena Hopkins NP) Closed fracture of left hip (Acute 06/09/21) Colitis (Acute) Discharge planning issues (Acute) DVT prophylaxis (Acute) Fatigue (Acute) Decreased appetite (Acute) HTN (hypertension) (Chronic) Medical History HTN (hypertension) Social History/Home Situation: Lives alone in a private home with 18 steps to enter. She will be taken by her friend Martínez to his house as she recovers whenever she is made medically cleared. Equipment Owned/DME: FWW Subjective: NT. See most recent [employer] notes. Objective: General Observation: NT. See most recent [employer] notes. Mental Status: NT. See most recent [employer] notes. Pain: NT. See most recent [employer] notes. ROM: Right Lower Extremity: Hip flexion WFL. Hip abduction WFL. Knee flexion WFL. Ankle dorsiflexion WFL. Ankle plantarflexion WFL. Left Lower Extremity: Hip flexion limited to 100? with pain at end range. Hip abduction allows 30? with pain at end range. Knee flexion WFL. Ankle dorsiflexion WFL. Ankle plantarflexion WFL. Strength: Right Lower Extremity: Hip flexors 5/5. Hip abductors 5/5. Knee flexors 5/5. Knee extensors 5/5. Ankle dorsiflexors 5/5. Ankle plantarflexors 5/5. Left Lower Extremity: Hip flexors 3-/5. Hip abductors 3-/5. Knee flexors 4/5. Knee extensors 4/5. Ankle dorsiflexors 5/5. Ankle plantarflexors 5/5. Bed Mobility/Transfers: Supine to sit with supervision Sit to stand with supervision Stand to sit with supervision Bed to reclining chair with supervision Gait: Instructed patient with level surface ambulation of 30 feet requiring stand by assist. Gait antalgic with significant favoring of the left LE observed, cueing provided for orthopod's recommendations of weight bearing as tolerated on the left LE using walker. Jeanette decreased. Balance: Static Sitting: Normal Dynamic Sitting: Good Static Standing: Fair Dynamic Standing: Poor Assessment: Patient demonstrates functional mobility improvement as evidenced by mobility level above and goal status below but will require continued services to increase stability of walking using FWW at home and then OP PT for mobility progression. Goals: Goals X1 week 1. Supine-Sit independent MET 2. Sit-Supine independent NOT MET 3. Sit-Stand independent NOT MET 4. Stand-Sit independent with FWW NOT MET 5. Bed-Chair independent with FWW NOT MET 6. Chair-Bed independent with FWW NOT MET 7. Independent gait on level surface with use of FWW for at least 300 feet without report of pain nor dyspnea NOT MET 8. Independent stair negotiation while holding onto B rails for at least 20 steps without report of pain nor dyspnea NOT MET 9. Independent with home exercise program NOT MET 10. Good static and dynamic standing balance/tolerance NOT MET DISCHARGE RECOMMENDATIONS: [] Home with no services [] [] Home with services [specify] [X] Home with outpatient PT. Home when medically cleared by orthopedic surgeon. Will benefit from outpatient PT services in order to facilitate return to SNF independent community ambulation without an assistive device. [] SNF for continued rehabilitation [] [] [facility] [] [] SNF versus LTC based on ability to participate and progress [] TREATMENT CODE/TIME: [place] Thank you for the opportunity to participate in the care of this patient. Kami Shi PT, DPT, CLT [facility] [place], [place]
== END 2021-06-11 16:36 | disposition home health service (06) | DRG 482 ==
LOC: ER 14:39 → MS 16:06
PROVIDERS: Nurse Practitioner Family; Student in an Organized Health Care Education/Training Program; Admitting Provider Internal Medicine; Emergency Provider Physician Assistant; Visit Provider Internal Medicine
PROC: 0QS706Z Reposition Left Upper Femur with Intramedullary Internal Fixation Device, Open Approach (ICD-10-PCS; CPT 27245; principal; 2021-06-10 12:00)
DX: S72.142A Displaced intertrochanteric fracture of left femur, initial encounter for closed fracture (principal); I10 Essential (primary) hypertension; W19.XXXA Unspecified fall, initial encounter; Y93.23 Activity, snow (alpine) (downhill) skiing, snowboarding, sledding, tobogganing and snow tubing; F12.90 Cannabis use, unspecified, uncomplicated; F16.90 Hallucinogen use, unspecified, uncomplicated; Z87.891 Personal history of nicotine dependence
CPT/HCPCS: 27245; 36415; 73552; 74177; 76942; 80048; 80053; 83690; 87635; 96360; 97110; 97162; 97530; 99222; 99285; 70450; 71260; 72125; 73501; 81003; 81015; 83735; 84484; 85025; 93005; 93010; 99223; 99232; 99238; J0690; J1100; J2001; J2270; J2370; J2405; J3010; J3490

== ENCOUNTER 2021-07-01 11:31 | Outpatient (CLI) | payer MEDICARE, BC, SELFPAY ==
--- NOTE | 2021-07-01 11:15 | DI.RAD_ITS ---
Exam(s) XR HIP LT AP LAT ONLY EXAM: XR HIP LT AP LAT ONLY CLINICAL HISTORY: left hip fx. TECHNIQUE: 2D digital imaging was performed. COMPARISON: CR XR FEMUR LT from 06/09/2021 FINDINGS: There has been interval open ORIF of the intertrochanteric fracture with placement of appropriate cinda dware and the satisfactory position alignment of the components of the main fracture fragments. The lesser trochanter is again noted to be avulsed. IMPRESSION: DATA REPOSITORY: RADIATION DOSE DELIVERED:
== END 2021-07-01 11:32 | disposition home or self-care (01) ==
LOC: DIORS 11:31
PROVIDERS: Visit Provider Student in an Organized Health Care Education/Training Program
DX: S72.142D Displaced intertrochanteric fracture of left femur, subsequent encounter for closed fracture with routine healing (principal); W19.XXXD Unspecified fall, subsequent encounter
CPT/HCPCS: 73502

== ENCOUNTER 2021-07-11 03:47 | Outpatient (CLI) | payer MEDICARE, BC, SELFPAY ==
[2021-07-11 22:21] LABS: COVID-19 RT-PCR UVMMC Result Negative (Negative)
== END 2021-07-11 03:48 | disposition home or self-care (01) ==
LOC: LBO 03:48
PROVIDERS: Visit Provider Ophthalmology
DX: Z20.822 Contact with and (suspected) exposure to COVID-19 (principal)
CPT/HCPCS: 87635; U0003; U0005

== ENCOUNTER 2021-07-14 09:28 | Day surgery (SDC) | payer MEDICARE, BC, SELFPAY ==
[2021-07-14] MEDS: Tropicam./Phenyleph. (1/2.5%) 5 ML BTL OD ×3 (10:22→10:34)
[2021-07-14 10:23] VITALS: BP 105/70; PULSE 59; RESP 16; TEMP 36.2; O2SAT 97
--- NOTE | 2021-07-14 11:40 | W.ANESPRE ---
General Info Date of Service Date Performed: 07/14/21 Height: 5 ft Weight: 50.8 kg Body Mass Index (BMI): 21.9 Surgical Procedure: Operation Date: 07/14/21 12:40 Proposed Procedure Side Surgeon p Cataract Extraction with IOL Implant Right Yg Sanabria MD Meds Allergies and Home Medications Allergies Allergy/AdvReac Type Severity Reaction Status Date / Time No Known Allergies Allergy Unverified 07/14/21 10:17 Home Medication Medication Instructions Recorded amlodipine 2.5 mg tablet 2.5 mg PO QPM 08/19/20 losartan 100 mg tablet 100 mg PO DAILY 08/19/20 aspirin 81 mg tablet,delayed 81 mg PO BID #60 tab 06/11/21 release Amuity Ellipta Furoate 100 mcg INHALATION Q24H 07/10/21 albuterol 90 mcg/actuation aerosol 90 mcg INHALATION DIRECTED 07/10/21 inhaler calcium carb-ergocalciferol (vit 1 tab PO DAILY 07/10/21 D2) 600 mg calcium-200 unit tablet Current Visit Medications: Current Medications Generic Name Dose Route Start Last Admin Trade Name Freq PRN Reason Stop Dose Admin Acetaminophen 1,000 mg 07/14/21 06:00 Acetaminophen 500 Mg Tab PO Q4H PRN PRN Miscellaneous Medication 0 ml 07/14/21 06:00 Prednisolone 1%, Moxifloxacin 0.5%, Nepafenac 0.1% 5ml Btl OD DIRECTED COUNT INCLUDES THE [facility] Miscellaneous Medication 0 ml 07/14/21 06:00 07/14/21 10:34 Tropicam./Phenyleph. (1/2.5%) 5 Ml Btl OD 1 drp DIRECTED KASHMIR Administration Tetracaine HCl 0 ml 07/14/21 06:00 Tetracaine 0.5% 4 Ml Btl OD DIRECTED COUNT INCLUDES THE [facility] PFSH Active Problems Active Problems: Problem Status Onset Code Nuclear sclerotic cataract of left eye H25.12 Cortical cataract of left eye H26.9 Decreased appetite R63.0 Fatigue R53.83 Colitis K52.9 Closed fracture of left hip 06/09/21 S72.002A Medical History Medical History Ascending aorta dilatation Per pt. her PCP is watching it, it's moderate in size Discharge planning issues Diverticulosis DVT prophylaxis Hip fracture (L) fractured 4 weeks ago HTN (hypertension) Hyponatremia Hypotension Mild intermittent asthma Osteopenia Tibia fracture Surgical History Surgical History H/O: hysterectomy Hx of colonoscopy Tobacco Smoking/Tobacco Use Status: Former Tobacco Use Alcohol Alcohol Intake: former Substance Use Substance use: Daily Substance use type: marijuana Details: edibles Vital Signs and Lab Results Vital Signs Most Recent Vital Signs in EMR: Most Recent Vital Signs Temp Pulse Resp BP Pulse Ox 36.2 C L 59 L 16 105/70 97 07/14/21 10:23 07/14/21 10:23 07/14/21 10:23 07/14/21 10:23 07/14/21 10:23 Lab Results Blood Type / Crossmatch: No Data to Display Complete Blood Count: No Data to Display Complete Metabolic Panel: No Data to Display Liver Function Panel: No Data to Display Coagulation Panel: No Data to Display Cardiac Panel: No Data to Display Arterial Blood Gas: No Data to Display Venous Blood Gas: No Data to Display Pancreas Panel: No Data to Display Thyroid Panel: No Data to Display Infectious Disease: Coronavirus (COVID-19)(PCR) Negative (Negative) 07/11/21 09:43 07/11/21 Blood Cultures: No Data to Display Toxicology Panel: No Data to Display Imaging and Studies Imaging and Studies Study information below may be from another EMR and interpreted by another provider. Please see original notes in EMR for more complete details. EKG Summary: 06/10/2021: Exam: Resting ECG Reason for Exam: pre-op Patient Location: I HR:56 bpm ECG Measurements Heart Rate 56 AXIS VT 168 P 71 QRSd 80 QRS 46 QT 423 T62 QTc 410 Conclusion Sinus bradycardia...rate< 60 Poor R wave progression, possible old anteroseptal infarct Echocardiogram Summary: 08/19/2020: Conclusion Left Ventricle : The left ventricle is normal size. The left ventricular systolic function is normal. The left ventricular ejection fraction is within the normal range. There is normal left ventricular wall thickness. There is normal LV segmental wall motion. The left ventricular diastolic function is normal. LVEF is 65-70%. Right Ventricle : The right ventricle is normal size. The right ventricular systolic function is normal. The RVSP is 23.0mmHg. Atria : The left atrium size is normal. The right atrium size is normal. Aortic Valve : The aortic valve is normal in structure. Aortic valve is trileaflet. Mild aortic regurgitation. There is no aortic valvular stenosis. Mitral Valve : The mitral valve is normal in structure. Mild mitral regurgitation. No evidence of mitral valve stenosis. Great Vessels : The aortic root is normal in size. The ascending aorta is moderately dilated. Aortic arch is normal in caliber. IVC is normal in size and collapses >50% with inspiration. Pericardium : Small circumferential pericardial effusion without evidence of tamponade. Anesthesia Assessment and Plan Anesthesia History Personal History: No History of Anesthesia Complications Family History: No Family History of Anesthesia Complications Exercise Tolerance Exercise Tolerance: Metabolic Equivalents>4 Pertinent Negatives Pertinent Negatives: No Symptoms of GERD, No Major Cardiovascular Symptoms or Complaints, No Major Pulmonary Symptoms or Complaints and No History of CVA/TIA Cardiac & Pulmonary Exam Cardiac Exam: Normal S1/S2 Heart Sounds Pulmonary Exam: Clear Bilateral Breath Sounds Implantable Cardiac Device Does patient have a Pacemaker or an ICD?: No Airway Exam Known Difficult Airway: No Mallampati Class: 1 Mouth Opening: Normal (> 3cm) Thyromental Distance: Greater than 3 cm Neck Range of Motion: Full ROM Neck Circumference: Normal Teeth Condition: Normal Dentition ASA Classification ASA Score: ASA 2 Emergency Case?: No NPO Status NPO Status: NPO Clears >2 hours, Solids >8 hours Anesthesia Plan Resuscitation Status: Full Code Anesthesia Technique: MAC Anesthesia Airway Planned: Natural Airway Monitors Used: Standard Monitors
[2021-07-14 11:42] VITALS: BMI 21.9
[2021-07-14] MEDS: Tetracaine 0.5% 4 ML BTL OD (12:01)
[2021-07-14] MEDS: Balanced Salt Soln.-PLUS 500 ML BAG (12:02)
[2021-07-14] MEDS: Lidocaine 2% Jelly 6 ML SYR (12:02)
[2021-07-14] MEDS: Povidone-Iodine Ophth 30 ML BTL (12:03)
[2021-07-14] MEDS: Duovisc Viscoelastic System EACH 1 EACH (12:04)
[2021-07-14 12:19] VITALS: BP 137/67; PULSE 58; RESP 16; TEMP 36.5; O2SAT 98
--- NOTE | 2021-07-14 12:19 | W.ANESPOSTOP ---
Postoperative Evaluation Date, Time and Location Date Performed: 07/14/21 Time Performed: 12:19 Patient Location: Day Surgery Unit Vital Signs Most Recent Imported Vital Signs: Most Recent Vital Signs Temp Pulse Resp BP Pulse Ox 36.2 C L 59 L 16 105/70 97 07/14/21 10:23 07/14/21 10:23 07/14/21 10:23 07/14/21 10:23 07/14/21 10:23 Most Recent Manually Entered Vital Signs: Adult Blood Pressure: 137/67 Heart Rate: 63 Respirations: 12 Oxygen Saturation (%): 98 Temperature (C): 36.5 C Pain Score (0-10 Scale): 0 Pain Score Most Recent Pain Score: Most Recent Pain Score Pain Level 2 07/14/21 10:23 Assessment Mental Status: Awake (Alert & Oriented to Patient Baseline) Airway and Respiratory Function: Patent airway with normal (patient baseline) respiratory exam Cardiovascular Function: Hemodynamically Stable Hydration Status: Adequately Hydrated Nausea & Vomiting: No Nausea or Vomiting Pain: Pt. Denies Any Pain Peripheral Nerve Block: Patient did not receive a nerve block
[2021-07-14 12:20] VITALS: BP 137/67; PULSE 63; RESP 12; TEMPC 36.5; O2SAT 98
--- NOTE | 2021-07-14 12:27 | W.PM.DSUDISC ---
Discharge Plan Disposition Patient Disposition: HOME Condition: Good Discharge Details Attending Provider: Yg Sanabria Home Meds and New Rx's Prescriptions: No Action amlodipine 2.5 mg Tablet 2.5 mg PO QPM 0RF losartan 100 mg Tablet 100 mg PO DAILY 0RF Amuity Ellipta Furoate 100 mcg powder 100 mcg inhalation Q24H 0RF albuterol 90 mcg/actuation Aerosol 90 mcg INHALATION DIRECTED 0RF Calcium + Vitamin D 600 mg calcium- 200 unit Tablet 1 tab PO DAILY 0RF aspirin 81 mg Tablet,Delayed Release (Dr/Ec) 81 mg PO BID Qty: 60 0RF Discharge Instructions Stand Alone Forms: Post-op Topical Cataract, Chaka Browne (DSU) Discharge Orders Discharge Orders: Discharge Order (Routine); Ordered 07/14/21 Ordered By: Yg Sanabria DS: Diagnosis Discharge Diagnosis (1) Nuclear sclerotic cataract of left eye: Status: Resolved (2) Cortical cataract of left eye: Status: Resolved
--- NOTE | 2021-07-14 12:28 | ROE_ITS ---
Date of service: 07/14/21 Time of Service: 12:28 Operative Note Operative Note DATE OF PROCEDURE: 07/14/21 PRE-OP DIAGNOSIS: Nuclear/cortical cataract, right eye POST-OP DIAGNOSIS: same PROCEDURE: Cataract extraction using phacoemulsification with intraocular lens implant, right eye SURGEON: Yg Sanabria ANESTHESIA TYPE: Local By Surgeon and MAC Refer to Anesthesia Record ESTIMATED BLOOD LOSS: 0 PATHOLOGY: none sent COMPLICATIONS: None Patient was transported to: same day Patient's condition: stable Implants: Steven & Steven/BOB Tecnis [id number] Indications: Progressive visual loss due to cataract, right eye Procedure Description: CATARACT SURGERY OPERATIVE REPORT PREOPERATIVE DIAGNOSIS: 1. Nuclear/cortical cataract, POSTOPERATIVE DIAGNOSIS: Same OPERATION: 1. Cataract extraction using phacoemulsification with posterior chamber intraocular lens implant, right eye. IOL: IOL Fish Stringer Assembler/Model: Steven & Steven / BOB Tecnis [id number] IOL Power: + 22 point diopters IOL Serial Number: [id number] Optic Diameter: 6.0mm Haptic/Overall Diameter: 13.0mm PHACO INFO: [employer] Vision System with OZil and Active Fluidics Cumulative Dispersed Energy (CDE): 10.68 seconds SURGEON: Yg Sanabria MD, MARCELA ANESTHESIA: Monitored Anesthesia Care (MAC), with local sub-tenon's anesthetic infiltration COMPLICATIONS: None SPECIMENS: None INDICATIONS FOR PROCEDURE: The patient is a 76-year-old lady with history of diminished visual acuity in her left eye secondary to the development of nuclear and cortical cataract. The option of cataract surgery was offered to the patient and she felt she was symptomatic enough that she wished to proceed PROCEDURE: The correct surgical eye was identified and marked as the right eye and the pupil was dilated in the preoperative area using mydriatics and cycloplegics. The dilated pupil size was 6.0 mm. She elected to proceed without oral sedation the patient was brought to the operating room where cardiopulmonary monitoring was instituted and surgical time-out was performed, confirming the correct operative eye and IOL power. Topical anesthesia was administered and ophthalmic povidone-iodine 5% was instilled into the conjunctival fornices. Lidocaine gel was applied to the cornea and the terry-ocular area was prepped with Betadine 10% solution and draped in the usual sterile fashion for intraocular surgery, including an aperture drape. A Tegaderm transparent film dressing was cut in half and used to cover the lashes and lid margins. Care was taken to sequester the lashes and lid margins under the Tegaderm dressing. A lid speculum was placed between the lids of the operative eye and the Yves [employer] Revalia operating microscope was maneuvered into position. Scott scissors were then used to make a conjunctival buttonhole approximately 6mm posterior to the limbus in the inferonasal quadrant. Blunt dissection was carried out to expose bare sclera, and a blunt-tipped sub-tenon?s anesthesia cannula was introduced and passed posteriorly along the globe where non- preserved plain lidocaine was injected into posterior sub-Tenon?s space. A sideport knife was used to make a paracentesis port inferotemporally. Intraocular phenylephrine/lidocaine was injected into the anterior chamber. The anterior chamber was filled with viscoelastic. A 2.4mm keratome knife was used to create a half-thickness groove at the limbus and then to construct a three- plane near-clear corneal tunnel extending 2.0mm into clear cornea superiortemporally. A flap was raised on the anterior capsule and capsulorhexis forceps were used to complete a continuous curvilinear capsulorhexis of 5.0 mm. Balanced salt solution was then used to perform cortical cleaving hydrodissection and nuclear hydrodelineation until the lens could be freely rotated within the capsular bag. The lens nucleus was then disassembled and removed within the capsular bag and iris plane using phacoemulsification. Residual cortical material was removed using the I/A handpiece. The posterior capsule was carefully polished to remove as much residual lens epithelial cells as safely possible. The capsular bag was then inflated and the anterior chamber deepened with viscoelastic. The lens implant described above was inserted into the capsular bag using the BOB [place] Injector. A Kuglen hook was used to dial the IOL into position. Residual viscoelastic was then removed first from posterior to the IOL, then from the anterior chamber using the I/A handpiece. The lens implant was noted to center nicely within the capsular bag. The incisions were stromally hydrated, and the anterior chamber was reformed using BSS. Then 0.5cc of moxifloxacin 1.0mg/ml were injected into the capsular bag and anterior chamber. The incisions were checked with a Weck spear and found to be secure. Several drops of ophthalmic povidone-iodine 5% were then applied to the eye followed by two drops of Imprimis combination prednisolone/moxifloxacin/nepafenac solution. The drapes were removed and a clear plastic protective eye shield was placed over the eye. The patient was then returned to Same Day Surgery in stable condition.
== END 2021-07-14 12:42 | disposition home or self-care (01) ==
PROVIDERS: Visit Provider Ophthalmology
PROC: (CPT 66984; principal; 2021-07-14 12:30)
DX: H25.12 Age-related nuclear cataract, left eye (principal); I10 Essential (primary) hypertension; J45.20 Mild intermittent asthma, uncomplicated
CPT/HCPCS: 66984; V2632

== ENCOUNTER 2021-07-28 11:43 | Day surgery (SDC) | payer MEDICARE, BC, SELFPAY ==
--- NOTE | 2021-07-28 07:16 | W.ANESPRE ---
General Info Date of Service Date Performed: 07/28/21 Height: 5 ft Weight: 50.8 kg Body Mass Index (BMI): 21.9 Surgical Procedure: Operation Date: 07/28/21 15:40 Proposed Procedure Side Surgeon p Cataract Extraction with IOL Implant Left Yg Sanabria MD Meds Allergies and Home Medications Allergies Allergy/AdvReac Type Severity Reaction Status Date / Time No Known Allergies Allergy Unverified 07/14/21 10:17 Home Medication Medication Instructions Recorded amlodipine 2.5 mg tablet 2.5 mg PO QPM 08/19/20 losartan 100 mg tablet 100 mg PO DAILY 08/19/20 aspirin 81 mg tablet,delayed 81 mg PO BID #60 tab 06/11/21 release Amuity Ellipta Furoate 100 mcg INHALATION Q24H 07/10/21 albuterol 90 mcg/actuation aerosol 90 mcg INHALATION DIRECTED 07/10/21 inhaler calcium carb-ergocalciferol (vit 1 tab PO DAILY 07/10/21 D2) 600 mg calcium-200 unit tablet Current Visit Medications: Current Medications Generic Name Dose Route Start Last Admin Trade Name Freq PRN Reason Stop Dose Admin Acetaminophen 1,000 mg 07/28/21 06:00 Acetaminophen 500 Mg Tab PO Q4H PRN PRN Miscellaneous Medication 0 ml 07/28/21 06:00 Prednisolone 1%, Moxifloxacin 0.5%, Nepafenac 0.1% 5ml Btl OS DIRECTED [facility] Miscellaneous Medication 0 ml 07/28/21 06:00 Tropicam./Phenyleph. (1/2.5%) 5 Ml Btl OS DIRECTED [facility] Tetracaine HCl 0 ml 07/28/21 06:00 Tetracaine 0.5% 4 Ml Btl OS DIRECTED [facility] PFSH Active Problems Active Problems: Problem Status Onset Code Cortical cataract of right eye H26.9 Nuclear sclerotic cataract of right eye H25.11 Nuclear sclerotic cataract of left eye H25.12 Cortical cataract of left eye H26.9 Decreased appetite R63.0 Fatigue R53.83 Colitis K52.9 Closed fracture of left hip 06/09/21 S72.002A Medical History Medical History Ascending aorta dilatation Per pt. her PCP is watching it, it's moderate in size Discharge planning issues Diverticulosis DVT prophylaxis Hip fracture (L) fractured 4 weeks ago HTN (hypertension) Hyponatremia Hypotension Mild intermittent asthma Osteopenia Tibia fracture Surgical History Surgical History H/O: hysterectomy Hx of colonoscopy Tobacco Smoking/Tobacco Use Status: Former Tobacco Use Alcohol Alcohol Intake: former Substance Use Substance use: Daily Substance use type: marijuana Details: edibles Vital Signs and Lab Results Lab Results Blood Type / Crossmatch: No Data to Display Complete Blood Count: No Data to Display Complete Metabolic Panel: No Data to Display Liver Function Panel: No Data to Display Coagulation Panel: No Data to Display Cardiac Panel: No Data to Display Arterial Blood Gas: No Data to Display Venous Blood Gas: No Data to Display Pancreas Panel: No Data to Display Thyroid Panel: No Data to Display Infectious Disease: Coronavirus (COVID-19)(PCR) Negative (Negative) 07/11/21 09:43 07/11/21 Blood Cultures: No Data to Display Toxicology Panel: No Data to Display Imaging and Studies Imaging and Studies Study information below may be from another EMR and interpreted by another provider. Please see original notes in EMR for more complete details. EKG Summary: 06/10/2021: Sinus bradycardia...rate< 60 Poor R wave progression, possible old anteroseptal infarct Echocardiogram Summary: 08/19/2020: LVEF 65-70%, RVSP 32. mild MR/AR, trace TR/AK. Anesthesia Assessment and Plan Anesthesia History Personal History: No History of Anesthesia Complications Family History: No Family History of Anesthesia Complications Exercise Tolerance Exercise Tolerance: Metabolic Equivalents>4 Cardiac & Pulmonary Exam Cardiac Exam: Normal S1/S2 Heart Sounds Pulmonary Exam: Clear Bilateral Breath Sounds Implantable Cardiac Device Does patient have a Pacemaker or an ICD?: No Airway Exam Known Difficult Airway: No Mallampati Class: 1 Mouth Opening: Normal (> 3cm) Thyromental Distance: Greater than 3 cm Neck Range of Motion: Full ROM Neck Circumference: Normal Teeth Condition: Normal Dentition ASA Classification ASA Score: ASA 2 Emergency Case?: No NPO Status NPO Status: NPO Clears >2 hours, Solids >8 hours Anesthesia Plan Resuscitation Status: Full Code Anesthesia Technique: General Anesthesia Airway Planned: Natural Airway Pain Management: Surgeon and patient request nerve block Monitors Used: Standard Monitors Preoperative Comments:: 76 yo for cataract. Sig PMHx: HypoNa, hypotension, asthma, ascending Ao dilation. former smoker. Previous cat with no MKO. no health history change.
[2021-07-28 12:02] VITALS: BP 145/85; PULSE 61; RESP 16; TEMP 36.2; O2SAT 98
[2021-07-28] MEDS: Tropicam./Phenyleph. (1/2.5%) 5 ML BTL OS ×3 (12:09→12:21)
[2021-07-28 12:13] VITALS: BMI 21.9
[2021-07-28] MEDS: Tetracaine 0.5% 4 ML BTL OS (13:21)
[2021-07-28] MEDS: Balanced Salt Soln.-PLUS 500 ML BAG (13:22)
[2021-07-28] MEDS: Lidocaine 2% Jelly 6 ML SYR (13:22)
[2021-07-28] MEDS: Duovisc Viscoelastic System EACH 1 EACH (13:22)
[2021-07-28] MEDS: Povidone-Iodine Ophth 30 ML BTL (13:23)
[2021-07-28 13:38] VITALS: BP 118/76; PULSE 54; RESP 16; TEMP 36.2; O2SAT 99
--- NOTE | 2021-07-28 13:41 | W.PM.DSUDISC ---
Discharge Plan Disposition Patient Disposition: HOME Condition: Good Discharge Details Attending Provider: Yg Sanabria Primary Care Provider: IRINEO PRITCHARD Home Meds and New Rx's Prescriptions: No Action amlodipine 2.5 mg Tablet 2.5 mg PO QPM 0RF losartan 100 mg Tablet 100 mg PO DAILY 0RF Amuity Ellipta Furoate 100 mcg powder 100 mcg inhalation Q24H 0RF albuterol 90 mcg/actuation Aerosol 90 mcg INHALATION DIRECTED 0RF Calcium + Vitamin D 600 mg calcium- 200 unit Tablet 1 tab PO DAILY 0RF aspirin 81 mg Tablet,Delayed Release (Dr/Ec) 81 mg PO BID Qty: 60 0RF Discharge Instructions Stand Alone Forms: Post-op Topical Cataract, Chaka Browne (DSU) Discharge Orders Discharge Orders: Discharge Order (Routine); Ordered 07/28/21 Ordered By: Yg Sanabria DS: Diagnosis Discharge Diagnosis (1) Nuclear sclerotic cataract of left eye: Status: Resolved (2) Cortical cataract of left eye: Start date: 07/28/21 Start time: 13:42 Status: Resolved
--- NOTE | 2021-07-28 13:42 | ROE_ITS ---
Date of service: 07/28/21 Time of Service: 13:42 Operative Note Operative Note DATE OF PROCEDURE: 07/28/21 PRE-OP DIAGNOSIS: Nuclear/cortical cataract, left eye POST-OP DIAGNOSIS: same PROCEDURE: Cataract extraction using phacoemulsification with intraocular lens implant, left eye SURGEON: Yg Sanabria ANESTHESIA TYPE: Local By Surgeon and MAC Refer to Anesthesia Record PATHOLOGY: none sent COMPLICATIONS: None Patient was transported to: same day Patient's condition: stable Implants: Steven and Steven / [employer] Tecnis [id number] Indications: Progressive decreased vision due to cataract, left eye Procedure Description: CATARACT SURGERY OPERATIVE REPORT PREOPERATIVE DIAGNOSIS: 1. Nuclear/cortical cataract, left eye POSTOPERATIVE DIAGNOSIS: Same OPERATION: 1. Cataract extraction using phacoemulsification with posterior chamber intraocular lens implant, left eye. IOL: IOL Churn Tender/Model: Steven & Steven / BOB [employer] [id number] IOL Power: + 23.0 diopters IOL Serial Number: [id number] Optic Diameter: 6.0 mm Haptic/Overall Diameter: 13.0 mm PHACO INFO: [employer] Vision System with OZil and Active [employer]uid[employer] Cumulative Dispersed Energy (CDE): 7.43 seconds SURGEON: Yg Sanabria MD, MARCELA ANESTHESIA: Monitored A [facility] (MAC), with local sub-tenon's anesthetic infiltration COMPLICATIONS: None SPECIMENS: None INDICATIONS FOR PROCEDURE: The patient is a 76-year-old lady with history of diminished visual acuity in both eyes secondary to the development of bilateral nuclear/cortical cataract. She has already undergone cataract surgery in the right eye and is doing well postoperatively. She now presents for cataract surgery in the left eye. PROCEDURE: The correct surgical eye was identified and marked as the left eye and the pupil was dilated in the preoperative area using mydriatics and cycloplegics. The dilated pupil size was 7.0 mm. She elected to proceed without oral sedation. The patient was brought to the operating room where cardiopulmonary monitoring was instituted and surgical time-out was performed, confirming the correct operative eye and IOL power. Topical anesthesia was administered and ophthalmic povidone-iodine 5% was i nstilled into the conjunctival fornices. Lidocaine gel was applied to the cornea and the terry-ocular area was prepped with Betadine 10% solution and draped in the usual sterile fashion for intraocular surgery, including an aperture drape. A Tegaderm transparent film dressing was cut in half and used to cover the lashes and lid margins. Care was taken to sequester the lashes and lid margins under the Tegaderm dressing. A lid speculum was placed between the lids of the operative eye and the Yves [employer] operating microscope was maneuvered into position. Scott scissors were then used to make a conjunctival buttonhole approximately 6mm posterior to the limbus in the inferonasal quadrant. Blunt dissection was carried out to expose bare sclera, and a blunt-tipped sub-tenon?s anesthesia cannula was introduced and passed posteriorly along the globe where non- preserved plain lidocaine was injected into posterior sub-Tenon?s space. A sideport knife was used to make a paracentesis port superiorly/superiortemporally. Intraocular phenylephrine/lidocaine was injected int the anterior chamber.. The anterior chamber was filled with viscoelastic. A 2.4mm keratome knife was used to create a half-thickness groove at the limbus and then to construct a three-plane near-clear corneal tunnel extending 2.0mm into clear cornea at the 3:00 position. A flap was raised on the anterior ca psule and capsulorhexis forceps were used to complete a continuous curvilinear capsulorhexis of 5.5 mm. Balanced salt solution was then used to perform cortical cleaving hydrodissection and nuclear hydrodelineation until the lens could be freely rotated within the capsular bag. The lens nucleus was then disassembled and removed within the capsular bag and iris plane using phacoemulsification. R esidual cortical material was removed using the 45-degree angled silicone I/A tip with 0.3mm port. The posterior capsule was carefully polished to remove as much residual lens epithelial cells as safely possible. The capsular bag was then inflated and the anterior chamber deepened with viscoelastic. The lens implant described above was inserted into the capsular bag using the BOB [place] Injector. A Kuglen hook was used to dial the IOL into position. Residual viscoelastic was then removed first from posterior to the IOL, then from the anterior chamber using the I/A handpiece. The lens implant was noted to center nicely within the capsular bag. The incisions were stromally hydrated, and the anterior chamber was reformed using BSS. Then 0.5cc of moxifloxacin 1.0mg/ml were injected into the capsular bag and anterior chamber. The incisions were checked with a Weck spear and found to be secure. Several drops of ophthalmic povidone-iodine 5% were then applied to the eye followed by two drops of Imprimis combination prednisolone/moxifloxacin/nepafenac solution. The drapes were removed and a clear plastic protective eye shield was placed over the eye. The patient was then returned to Same Day Surgery in stable condition.
--- NOTE | 2021-07-28 13:58 | W.ANESPOSTOP ---
Postoperative Evaluation Date, Time and Location Date Performed: 07/28/21 Time Performed: 13:58 Patient Location: Day Surgery Unit Vital Signs Most Recent Imported Vital Signs: Most Recent Vital Signs Temp Pulse Resp BP Pulse Ox 36.2 C L 54 L 16 118/76 99 07/28/21 13:38 07/28/21 13:38 07/28/21 13:38 07/28/21 13:38 07/28/21 13:38 Pain Score Most Recent Pain Score: Most Recent Pain Score Pain Level 0 07/28/21 13:38 Assessment Mental Status: Awake (Alert & Oriented to Patient Baseline) Airway and Respiratory Function: Patent airway with normal (patient baseline) respiratory exam Cardiovascular Function: Hemodynamically Stable Hydration Status: Adequately Hydrated Nausea & Vomiting: No Nausea or Vomiting Pain: Pt. Denies Any Pain Peripheral Nerve Block: Patient did not receive a nerve block
== END 2021-07-28 14:00 | disposition home or self-care (01) ==
PROVIDERS: PCP Internal Medicine; Visit Provider Ophthalmology
PROC: (CPT 66984; principal; 2021-07-28 15:30)
DX: H25.12 Age-related nuclear cataract, left eye (principal); J45.20 Mild intermittent asthma, uncomplicated; I10 Essential (primary) hypertension
CPT/HCPCS: 66984; V2632

== ENCOUNTER 2021-08-19 11:05 | Outpatient (CLI) | payer MEDICARE, BC, SELFPAY ==
--- NOTE | 2021-08-19 10:15 | DI.RAD_ITS ---
Exam(s) XR HIP LT AP LAT ONLY EXAM: XR HIP LT AP LAT ONLY CLINICAL HISTORY: LEFT HIP FX F/U. TECHNIQUE: 2D digital imaging was performed of the left hip. Two views were obtained. AP and later al views were obtained. COMPARISON: CR XR HIP LT AP LAT ONLY from 07/01/2021 FINDINGS: BONES: There are stable postsurgical changes in the left hip with internal fixation of the intertroch anteric fracture. No change in alignment of the fracture components is seen. There is no new fractu re. No bony destructive lesion is seen. JOINTS: No dislocation present. SOFT TISSUE: Normal. IMPRESSION: Stable postsurgical changes in the left hip. DATA REPOSITORY: RADIATION DOSE DELIVERED:
== END 2021-08-19 11:06 | disposition home or self-care (01) ==
LOC: DIORS 11:05
PROVIDERS: PCP Internal Medicine; Visit Provider Student in an Organized Health Care Education/Training Program
DX: X58.XXXA Exposure to other specified factors, initial encounter (principal); S72.002A Fracture of unspecified part of neck of left femur, initial encounter for closed fracture
CPT/HCPCS: 73502

== ENCOUNTER 2021-10-21 10:34 | Outpatient (CLI) | payer MEDICARE, BC, SELFPAY ==
--- NOTE | 2021-10-21 10:15 | DI.RAD_ITS ---
Exam(s) XR HIP LT AP LAT ONLY EXAM: XR HIP LT AP LAT ONLY INDICATION: left hip fx f/u. COMPARISON: CR XR HIP LT AP LAT ONLY from 07/01/2021 CR XR HIP LT AP LAT ONLY from 08/19/2021 TECHNIQUE: 2D digital imaging was performed. Two views. FINDINGS: There has been no change in hardware or fracture alignment. Continued fracture healing. No new find ings. DATA REPOSITORY: RADIATION DOSE DELIVERED:
== END 2021-10-21 10:35 | disposition home or self-care (01) ==
LOC: DIORS 10:35
PROVIDERS: PCP Internal Medicine; Referring Provider Internal Medicine; Visit Provider Student in an Organized Health Care Education/Training Program
DX: S72.002A Fracture of unspecified part of neck of left femur, initial encounter for closed fracture (principal); X58.XXXA Exposure to other specified factors, initial encounter
CPT/HCPCS: 99213; 73502

== ENCOUNTER 2023-12-02 06:27 | Emergency (ER) | payer MEDICARE, BC, SELFPAY ==
[2023-12-02 06:29] VITALS: BP 109/60; PULSE 66; RESP 18; TEMP 36.5; O2SAT 100
--- NOTE | 2023-12-02 06:30 | DI.RAD_ITS ---
Exam(s) XR HAND RT COMPLETE EXAM: XR HAND RT COMPLETE CLINICAL HISTORY: ring finger pain/deformity. TECHNIQUE: 2D digital imaging was performed. COMPARISON: No exams were available for comparison FINDINGS: 3 views No evidence of acute fracture nor dislocation nor radiopaque foreign body. There are degenerative ch anges in the DIP joints of fingers. No erosions. Advanced degenerative changes are noted in the lat eral aspect of the wrist 1st carpometacarpal joint and triscaphe joint. IMPRESSION: As above but no acute fractures evident. DATA REPOSITORY: RADIATION DOSE DELIVERED:
--- NOTE | 2023-12-02 06:33 | W.ED.GENAD ---
Discharge Plan Discharge Details Chief Complaint: Orthopedic Primary Care Provider: IRINEO PRITCHARD ED Provider: Jonny Schuster Home Meds and New Rx's Prescriptions: No Action amlodipine 2.5 mg Tablet 2.5 mg PO QPM losartan 100 mg Tablet 100 mg PO DAILY albuterol 90 mcg/actuation Aerosol 90 mcg INHALATION DIRECTED Calcium + Vitamin D 600 mg calcium- 200 unit Tablet 1 tab PO DAILY HPI General Mode of arrival: ambulatory. Date/Time Provider Initiated Documentation: 12/02/23 06:33. Limitations to Documentation: no limitations. Information obtained by: patient. HPI Narrative: Patient presents to ED with right ring finger pain and deformity. Patient was just pouring a pot out through a strainer. She felt a pop in her right hand and then noted that her ring finger was no longer lined up the way it supposed to be. She tried straightening it out but it caused too much pain. She is left-hand dominant. She presents this morning with continued pain and deformity. Related Data Home Medications ?Medication ?Instructions ?Recorded ?Confirmed amlodipine 2.5 mg tablet 2.5 mg PO QPM 08/19/20 12/02/23 losartan 100 mg tablet 100 mg PO DAILY 08/19/20 12/02/23 albuterol 90 mcg/actuation aerosol 90 mcg inhalation DIRECTED 07/10/21 12/02/23 inhaler calcium carb-ergocalciferol (vit 1 tab PO DAILY 07/10/21 12/02/23 D2) 600 mg calcium-200 unit tablet Allergies Allergy/AdvReac Type Severity Reaction Status Date / Time No Known Allergies Allergy Unverified 12/02/23 06:38 General Stated Complaint: Orthopedic JAVI: 4 Review of Systems Narrative: Per HPI Exam Narrative Exam Narrative: Const: WDWN elderly female in NAD. VS per triage. HEENT: NC/AT. Normal facial exam. Neck: Supple. Trachea midline. Lungs: Normal respiratory effort. Neuro: A+O x 3. Normal speech, mentation. Cranial nerves II - XII grossly intact. No gross motor or sensory deficit. Ext: Right hand without bruising or swelling. Right ring finger lower than the others and deviated toward ulna side. Able to flex and extend the PIP and DIP joint but not MCP. Course Vital Signs Vital signs: Vital Signs Temperature 97.7 F 12/02/23 06:29 Pulse 66 12/02/23 06:29 Respiratory Rate 18 12/02/23 06:29 Blood Pressure 109/60 12/02/23 06:29 Pulse Oximetry 100 12/02/23 06:29 Temperature 97.7 F 12/02/23 06:29 Temperature Source Temporal Artery Scan 12/02/23 06:29 Pulse 66 12/02/23 06:29 Respiratory Rate 18 12/02/23 06:29 Blood Pressure 109/60 12/02/23 06:29 Blood Pressure Position Sitting 12/02/23 06:29 Pulse Oximetry 100 12/02/23 06:29 Oxygen Delivery Method Room Air 12/02/23 06:29 Oxygen Flow Rate 0 12/02/23 06:29 Pain Level 1 12/02/23 06:29 Medical Decision Making Patient presenting with pain and deformity to the right ring finger. May be subluxation or dislocation at the MCP joint. X-rays ordered. 07:10 - Patient's x-ray without obvious fracture or dislocation per my read. Reviewed films with Dr. Casillas. Will sign patient over pending radiology read. Quality:[facility] Health Related Social Needs: No Data to Display [facility] Medical History (Updated 12/02/23 @ 06:40 by Jonny Schuster MD) Diverticulosis Tibia fracture Osteopenia Mild intermittent asthma Ascending aorta dilatation Per pt. her PCP is watching it, it's moderate in size HTN (hypertension) Surgical History (Updated 10/21/21 @ 11:03 by ZOE Rivera) H/O: hysterectomy Hx of colonoscopy Closed fracture of left hip (06/09/21) S/P ORIF with IM nail: 06/10/2021 Social History Smoking/Tobacco Use Status: Former Tobacco Use Quit Date: 05/17/76 Smoking risk assessment performed?: Yes Alcohol Intake: former Drug use: Daily Substance use type: marijuana Details: edibles Current gender identity: female Do you feel safe at home: Yes Additional Social history: live alone
--- NOTE | 2023-12-02 08:40 | DI.VRAD_ITS ---
PROCEDURE INFORMATION: Exam: XR Right Hand Exam date and time: 12/02/2023 6:48 AM Age: 78 years old Clinical indication: Pain; Hand; Right; Additional info: Ring finger pain/deformity TECHNIQUE: Imaging protocol: Radiologic exam of the right hand. Views: 3 or more views. COMPARISON: No relevant prior studies available. FINDINGS: Limitations: Suboptimal positioning results in overlap on some views. Bones/joints: The bones are diffusely demineralized. No acute or healing fractures are identified. There is no dislocation or subluxation. Changes of osteoarthritis are noted throughout the joints of the hand and wrist, most advanced in the 1st carpometacarpal and triscaphe joints where there is severe joint space narrowing, subchondral sclerosis, subchondral cysts and marginal osteophytes. Soft tissues: No acute abnormality. No soft tissue calcification. IMPRESSION: 1. No acute osseous abnormality. No fracture or malalignment. 2. Diffuse changes of osteoarthritis throughout the right hand and wrist. Dictated and Authenticated by: Nguyen Palma MD. Ordering:MELISSA Fuller MD
--- NOTE | 2023-12-02 08:53 | ED.PROG_ITS ---
Date of service: 12/02/23 Time of Service: 08:53 Medical Decision Making Care signed out by Dr. Schuster with plan to follow-up on official x-ray read of the hand. X-ray of the hand interpreted by radiology:IMPRESSION: 1. No acute osseous abnormality. No fracture or malalignment. 2. Diffuse changes of osteoarthritis throughout the right hand and wrist. Suspect sprain of the ring finger finger. Plan to splint finger and will have patient follow-up with PCP for reassessment. Splint was applied by nursing. Usual customary discharge instructions were reviewed with the patient. Quality:[facility] Health Related Social Needs: No Data to Display Sign Out Sign Out Data: Sign Out Comment: pending radiology read of hand film Last updated by Jonny Schuster MD at 12/02/23 07:13 Discharge Plan Disposition Patient Disposition: Home Condition: Stable Discharge Details Clinical Impression: Sprain of right ring finger Primary Care Provider: IRINEO PRITCHARD ED Provider: Joaquin Casillas Home Meds and New Rx's Prescriptions: Continued amlodipine 2.5 mg Tablet 2.5 mg PO QPM losartan 100 mg Tablet 100 mg PO DAILY albuterol 90 mcg/actuation Aerosol 90 mcg INHALATION DIRECTED calcium carbonate-vitamin D2 600 mg calcium- 200 unit Tablet 1 tab PO DAILY Discharge Instructions Instructions: Finger Sprain ED Additional Instructions: Please take acetaminophen (tylenol) - 650mg every 6 hours by mouth as needed for pain. Please use splint over the next 1 week. You should expect improvement in symptoms over the next 1 week. Please follow-up with orthopedics if pain persist. Please contact your primary care physician to arrange follow-up. Return to the ER immediately for any worsening or new concerning symptoms. Referrals: [facility] [Provider Group] IRINEO PRITCHARD DO [Primary Care Provider] - Discharge Data Discharge Date/Time-TO BE ENTERED AT DEPARTURE: 12/02/23 09:05
== END 2023-12-02 09:05 | disposition home or self-care (01) ==
PROVIDERS: Emergency Provider Student in an Organized Health Care Education/Training Program; PCP Internal Medicine
DX: S63.614A Unspecified sprain of right ring finger, initial encounter (principal); I10 Essential (primary) hypertension; X50.9XXA Other and unspecified overexertion or strenuous movements or postures, initial encounter; Y93.G3 Activity, cooking and baking; Y92.018 Other place in single-family (private) house as the place of occurrence of the external cause; Z87.891 Personal history of nicotine dependence
CPT/HCPCS: 00123; 99283; 73130

== ENCOUNTER 2024-06-03 06:30 | Emergency (ER) | payer MEDICARE, BC, SELFPAY ==
[2024-06-03 06:32] VITALS: BP 151/73; PULSE 65; RESP 16; TEMP 36.6; O2SAT 96
[2024-06-03 06:36] VITALS: BP 151/73; RESP 16; TEMP 36.6; O2SAT 96
--- NOTE | 2024-06-03 06:45 | DI.RAD_ITS ---
Exam(s) XR PORTABLE CHEST AP EXAM: XR PORTABLE CHEST AP CLINICAL HISTORY: cough, eval for pneumonia TECHNIQUE: 2D digital imaging was performed. COMPARISON: CT CT CHEST/ABD/PEL W from 06/09/2021 FINDINGS: LUNGS: Clear. No pleural abnormality seen. HEART: Mildly enlarged. AORTA: Mildly tortuous. BONES: Unremarkable for age. Soft tissues: Unremarkable. IMPRESSION: No acute findings. DATA REPOSITORY: RADIATION DOSE DELIVERED:
--- OUTSIDE RECORDS SUMMARY | 2024-06-03 06:52 | XMS_ITS | Encounter Summary ---
Author Organization [facility] Address [address] [place] [address] Care Team Providers Care Hotel Operation Manager Name Role Phone Unavailable Primary Care Provider Unavailabl e Encounter Details Date Type Department Care Team (Late st Contact Info) Description 07/11/2021 Lab Requisition [facility] Pathology & Laboratory Medicine - [facility] [address] [place] [address] Outr Resulting Lab, Provider Social History Tobacco Use Types Packs/Day Years Used Date Smoking Tobacco: Never Assessed Interpersonal Safety Answer Date Record ed Physically Hurt Never 08/21/2020 Verbally Threaten Not on file 08/21/2020 Comments Unknown Sex and Gender Information Value Date Recorded Sex Assigned at Not on file Legal Sex Female 10:07 EDT Gender Identity Not on file Sexual Orientation Not on file documented as of this encounter Plan of Treatment Not on file documented as of this encounter Procedures Procedure Name Priority Date/Time Associated Diagnosis Comments ZZCOVID-19 TEST [facility] PCR Today 07/11/2021 9:43 EST COVID-19 TESTING Routine 07/11/2021 9:43 EST documented in this encounter Results * COVID-19 TEST [facility] PCR (07/11/2021 9:43 EST) Swab 07/11/2021 9:43 EST 07/11/2021 16:18 EST us Provider Outr Resulting Lab MICROBIOLOGY - GENER AL ORDERABLES Final Result [facility] [address] [place] [address] * COVID-19 TESTING (07/11/2021 9:43 EST) COVID-19 rt-PCR Result Negative Negative 07/11/2021 22:17 EST [facility] Comment: This test has not been FDA cleared or approved. This test has been authorized by FDA under an EUA for use by authorized laboratories. This test has been authorized only for detection of nucleic acid from 2019-nCoV, not for any other viruses or pathogens. This test is only authorized for the duration of the declaration that circumstances exist justifying the authorization of emergency use of in vitro diagnostic tests for detection and/or diagnosis of 2019-nCoV under section 564(b)(1) of Act, 21 U.S.C ?? 360bbb-3(b) (1), unless the authorization is terminated or revoked sooner. Negative results do not preclude 2019-nCoV infection and should not be used as the sole basis for treatment or other patient management decisions. Negative results must be combined with clinical observations, patient history, and epidemiological information. Performed on the Anedot Fusion instrument Performing Lab [facility] Lab 07/11/2021 22:17 EST [facility] Swab 07/11/2021 9:43 EST 07/11/2021 16:18 EST us Provider Outr Resulting Lab MICROBIOLOGY - GENER AL ORDERABLES Final Result [facility] [address] [place] [address] documented in this encounter Visit Diagnoses Not on filedocumented in this encounter
--- OUTSIDE RECORDS SUMMARY | 2024-06-03 06:52 | XMS_ITS | Clinical Summary ---
Author Organization [facility] Address [facility] [place] [address] Care Team Providers Care Carbon Paper Coating Supervisor Name Role Phone None Primary Care Provider Unavailabl e Allergies No known active allergies Medications Medication Sig Dispensed Refills Start Date End Date Status calcium carbonate (TUMS) 200 mg (500 mg) chewable tablet 06/30/2005 Activ e ibuprofen (ADVIL;MOTRIN) 200 mg tablet 06/30/2005 Active ofloxacin (FLOXIN) 0.3 % Drops 05/31/2015 Active albuterol (PROVENTIL HFA;VENTOLIN HFA;PROAIR) 90 mcg/actuation HFA Aerosol Inhaler Inhale 2 puffs into the lungs. Use with spacer Active triamcinolone (KENALOG) 0.1 % OintmentIndications:O ther eczema Apply topically twice daily to the affected arms and hands. 80 g 12/13/2015 Active Active Problems No known active problems Social History Tobacco Use Types Packs/Day Years Used Date Smoking Tobacco: Never Sex and Gender Information Value Date Recorded Sex Assigned at Not on file Gender Identity Not on file Sexual Orientation Not on file Plan of Treatment Health Maintenance Due Date Last Done Comments Tetanus/Diphtheria/Pertussis Vaccines (1 - Tdap) 02/04 Pneumoccocal Vaccine: 50+ (1 of 1 - PCV) 1993 Zoster vaccine (1 of 2) 1993 Advance Directive 1998 Bone Density Scan 02/05/2008 RSV Vaccine (1 - 1-dose 75+ series) 2018 Covid-19 Vaccine ( - 2023-25 season) 2024 Influenza (Flu) vaccine (1 o f 1 - Influenza standard series) 01/16/2024 Care Teams Carbon Paper Coating Supervisor Relationship Specialty Start Date End Date None None PCP - General 05/26/24
--- OUTSIDE RECORDS SUMMARY | 2024-06-03 06:52 | XMS_ITS | Encounter Summary ---
Author Organization [facility] Address [address] [place] [address] Care Team Providers Care Clerical Order Filler Name Role Phone Unavailable Primary Care Provider Unavailabl e Encounter Details Date Type Department Care Team (Late st Contact Info) Description 08/20/2020 Lab Requisition [facility] Pathology & Laboratory Medicine - [facility] [address] [place] [address] Outr Resulting Lab, Provider Social History Tobacco [...] Procedure Name Priority Date/Time Associated Diagnosis Comments LYME AB Routine 08/20/2020 7:18 EDT documented in this encounter Results * LYME AB (08/20/2020 7:18 EDT) Lyme Ab Negative Negative 08/21/2020 9:34 EDT [facility] Comment:New 3rd generation a ssay in use 10/25/2019 Blood VENOUS BLOOD / Unknown 08/20/2020 7:18 EDT 08/20/2020 16:32 EDT us Provider Outr Resulting Lab IMMUNOLOGY AND SEROL OGY ORDERABLES Final Result [facility] [address] [place] [address] documented in this encounter Visit Diagnoses Not on filedocumented in this encounter
--- OUTSIDE RECORDS SUMMARY | 2024-06-03 06:52 | XMS_ITS | Referral Summary ---
Author Organization [facility] Address [address] [place] [address] Care Team Providers Care Pharmaceutical Operator Name Role Phone Unavailable Primary Care Provider Unavailabl e Social History Tobacco Use Types Packs/Day Years Used Date Smoking Tobacco: Never Assessed Interpersonal Safety Answer Date Record ed Physically Hurt Never 08/21/2020 Verbally Threaten Not on file 08/21/2020 Comments Unknown Sex and Gender Information Value Date Recorded Sex Assigned at Not on file Legal Sex Female 10:07 EDT Gender Identity Not on file Sexual Orientation Not on file Plan of Treatment Not on file
--- OUTSIDE RECORDS SUMMARY | 2024-06-03 06:52 | XMS_ITS | Encounter Summary ---
Author Organization [facility] [place] [address] Care Team Providers Care Project Facilitator Name Role Phone Jael Jarvis APRN Primary Care Provider [phone] Reason for Visit * Reason Comments Skin Lesion back of neck * Consultation (Routine) - Specialty Diagnoses / Procedures Referred By Conthumphrey t Referred To Contact Dermatology Diagnoses Scalp lesion Jael Jarvis, DOMINICK [address] [place] [address] [facility] [address] [place] [phone] Referral ID Status Reason Start Date Expiration Date V isits Requested Visits Authorized [id number] 05/01/2015 05/01/2016 4 4 Encounter Details Date Type Department Care Team ([facility] st Contact Info) Description 06/03/2015 2:00 PM EST Office Visit Dermatology at [address] [phone] Kami Samano PA [address] [place] [id number] Seborrheic keratosis, inflamed; Seborrheic keratosis Social History Tobacco Use Types Packs/Day Years Used Date Smoking Tobacco: Never Sex and Gender Information Value Date Recorded Sex Assigned at Not on file Gender Identity Not on file Sexual Orientation Not on file documented as of this encounter Patient Instructions * Patient Instructions* Jo Ann Wilson CMA - 06/03/2015 1:34 PM EST Inflamed Seborrheic Keratoses You have been diagnosed today with Inflamed Seborrheic Keratosis (ISK). These lesions are benign and have no risk of turning into a skin cancer. Due to their bothersome nature, ISKs are usually treated. You were treated today with Liquid Nitrogen. This is the most common treatment for ISKs. Liquid nitrogen is extremely cold, and freezes the surface of the skin, causing the lesion to flake off. Treatment with liquid nitrogen can be uncomfortable, but discomfort should subside after a couple of hours. The area treated will look red and irritated, and it may blister up or turn dark, then fall off. This is normal! You do not need any special treatment for the area, but you may find a light application of Vaseline soothing. For best results, do not rub or pick at the healing lesion. Expected healing time is 3-4weeks. Please contact the clinic if any of these treated spots are not completely gone by the end of 6 weeks or if they appear to grow back in the future. documented in this encounter Progress Notes * Jo Ann Wilson CMA - 06/03/2015 1:30 PM EST Molly Meek 1945 [id number] Chief Complaint: History of Present Illness: Personal Hx of Skin Ca: no Family Hx of Melanoma: no Chief Complaint: lesions back of neck Duration/Symptoms/Treatment: scaly and scabby, itchy Occupation: [employer] Ref / PCP: DOMINICK MAHAJAN Cynthia P, APRN [address] [place] [address] Pharmacy: Last Visit: Visit date not found HISTORY/Objective: Molly Meek is a 70 y.o. year old female who was seen for one spot-check at thisappointment. Knows this is a one-spot check clinic only. Knows will need to make appointment for full skin check if desired or to have other areas checked. Patient seen in consultation at the request of JAEL JARVIS APRN In order to facilitate coordination of this patient's care, a copy of this note will be sent to JAEL P JARVIS, HEAVY EQUIPMENT MECHANIC Physical Exam General: well developed, well nourished, in no acute distress Psych: alert and cooperative; normal mood and affect; normal attention span and concentration Skin: 1. 7 MM rajinder crusted papule posterior neck. 3 mm erythematous scaly papule inferiorly Impression & Recommendations: Problem # 1: two Inflamed Seborrheic Keratosis. 2 treated with liquid nitrogen for 2 freeze and thaw cycles. Patient asked to let me know if these are not completely gone by the end of 6 weeks or if they appear to recur. Importance of follow stressed and differential diagnosis reviewed, including skin cancer, if the lesions are not resolved by the end of 6 weeks or if they recur. #2. Seborrheic keratoses. Benign entity of these lesions were reviewed. Kami Samano PA-C, [facility] Department of Dermatology [facility] documented in this encounter Plan of Treatment Not on file documented as of this encounter Visit Diagnoses Diagnosis Seborrheic keratosis, inflamed Inflamed seborrheic keratosis Seborrheic keratosis Other seborrheic keratosis documented in this encounter Care Teams Project Facilitator Relationship Specialty Start Date End Date Jael Jarvis APRN [address] [place] [address] PCP - General 04/29/10 05/25/24 documented as of this encounter
--- OUTSIDE RECORDS SUMMARY | 2024-06-03 06:52 | XMS_ITS | Clinical Summary ---
Author Organization [facility] Address [address] [place] [address] Care Team Providers Care Emergency Medical Service Coordinator Name Role Phone Unavailable Primary Care Provider [...] Health Maintenance Due Date Last Done Comments Fall Risk Screening 02/05/2008 RSV Immunization ( o r 60+ Years) (1 - 1-dose 75+ series) 2018 COVID-19 Vaccine ( season) 2024
--- OUTSIDE RECORDS SUMMARY | 2024-06-03 06:52 | XMS_ITS | Encounter Summary ---
Author Organization Formerly [facility] Address One [facility] [place] [address] Care Team Providers Care Etl Tester Name Role Phone Bhavna Jarvis APRN Primary Care Provider [phone] Reason for Visit * Reason Comments Eczema * Consultation (Routine) - Closed Specialty Diagnoses / Procedures Referred By German t Referred To Contact Dermatology Diagnoses eczematous dermatitis hands; onset in past 6 mos of flaking, lichenified, cracking/splitting skin eruption on dorsal aspects of both hands not repsonding to otc hydrocortisone. Bhavna Jarvis, DOMINICK [address] [place] [id number] [facility] Dermatology [address] [place] [address] Referral ID Status Reason Start Date Expiration Date V isits Requested Visits Authorized [id number] Closed Consult, [facility] & [facility] 11/12/2015 11/11/2016 1 1 Encounter Details Date Type Department Care Team ([facility] Contact Info) Description 12/13/2015 11:30 AM EDT Office Visit Dermatology at [facility] [address] [place] [id number] Deborah Patel MD Other eczema (Primary Dx) Social History Tobacco Use Types Packs/Day Years Used Date Smoking Tobacco: Never Sex and Gender Information Value Date Recorded Sex Assigned at Not on file Gender Identity Not on file Sexual Orientation Not on file documented as of this encounter Progress Notes * Deborah Patel MD - 12/13/2015 11:30 AM EDT Images from the original note were not included. DERMATOLOGY - NEW PATIENT NOTE Date of service: 12/13/2015 Molly Meek : 1945 Dermatology Resident Note: Deborah Patel MD, PGY4 Chief Complaint Patient presents with ??? Eczema HPI: Ms. Molly Meek is a 70 y.o. female. This is a new patient to me, seen in consultation at the request of Bhavna Jarvis specifically for the evaluation and management of eczema on both arms and hands. She reports that bumps developed on her left dorsum hand spread to the right dorsum hand and right arm about a year ago. She does not know what triggers it. 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 Lately she works one night a week and she used to work 6 times a week,and there is no noticeable difference. Wears gloves when needed. She has been applying hydrocortisone to help with the itching. She has experimented with several soaps and does not moisturize her skin often because she does not like the feel of the creams. Past Skin History: per patient and derm note dated 06/03/15 Actinic keratosis Inflamed seborrheic keratosis There is no problem list on file for this patient. When asked about past medical/surgical history, patient reports: Hysterectomy Tonsillectomy Pre-Procedure Checklist: Pacemaker/defibrillator: No Allergy to lidocaine or epinephrine: No Do we have your permission to leave a voicemail with biopsy results and other detailed health information? Yes Current Outpatient Prescriptions Medication Sig Dispense Refill ??? ofloxacin (FLOXIN) 0.3 % Drops ??? albuterol (PROVENTIL HFA;VENTOLIN HFA;PROAIR) 90 mcg/actuation HFA Aerosol Inhaler Inhale 2 puffs into the lungs. Use with spacer ??? calcium carbonate (TUMS) 200 mg (500 mg) chewable tablet ??? ibuprofen (ADVIL;MOTRIN) 200 mg tablet No current facility-administered medications for this visit. No Known Allergies Family History: No family h/o melanoma or non-melanoma skin cancer. No family h/o eczema or psoriasis. 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 NO recent cold, fever or flu. - Skin: As per HPI; no other skin concerns. Examination: Constitutional: Patient was alert, well-appearing and in no noticeable distress. Skin: An abbreviated skin exam was performed. This includes: Hands and arms Specific skin findings: A. Bilateral dorsal hands, forearms, elbows: moderately well demarcated pink scaly lichenified plaques Diagnosis/Assessment/Treatment Plan: A. Eczematous dermatitis: Differential diagnosis includes allergic contact dermatitis and atopic dermatitis. The latter is doubtful given late onset in life. - Recommended the patient apply Vaseline to the wet skin after showering. - Rx: Triamcinolone 0.1% ointment - apply to the affected areas BID for 2 weeks. For the first 3-4 days use triamcinolone under wet dressings for 30 minutes and then re-apply triamcinolone ointment. After 2 weeks apply to the affected areas BID on the weekends - If patient symptoms are not adequately controlled with the above measures, will consider patch testing. Follow-up: RTC in 1 month for follow up, sooner if needed. Appointment scheduled upon exiting. Instructed to call if problems arise. I, Lisa Padilla LPN and Brie Silverio, Clinical Scribe, am documenting this encounter acting as the scribe for and in the presence of Dr. Deborah Patel. I performed the above scribed service and agree with the accuracy of the documentation of this encounter. Deborah Patel MD, PGY4 Resident in Dermatology [facility] Patient seen and evaluated with staff pleat patternmaker: Vero Lennon MD Section of Dermatology [facility] * Vero Lennon MD - 12/13/2015 11:30 AM EDT I directly supervised Dr. Patel in the care of this patient. I saw and evaluated this patient with Dr. Patel. She presented the history and physical exam detailsto me, then we saw the patient together and I confirmed these findings. I agree with details as written. My physical examination confirms Dr. Patel's findings. The assessment and plan were formulated in discussion with me at the time of visit and I agree with them as documented. VERO LENNON MD Staff Physician documented in this encounter Plan of Treatment Not on file documented as of this encounter Visit Diagnoses Diagnosis Other eczema- Primary documented in this encounter Care Teams Etl Tester Relationship Specialty Start Date End Date Bhavna Jarvis APRN [address] [place] [address] PCP - General 04/29/10 05/25/24 documented as of this encounter
--- OUTSIDE RECORDS SUMMARY | 2024-06-03 06:52 | XMS_ITS | Encounter Summary ---
Author Organization [facility] Address One [facility] [place] [address] Care Team Providers Care Structural Steel Equipment Erector Name Role Phone Bhavna Jarvis APRN Primary Care Provider [phone] Reason for Visit * Reason Comments Follow-up Encounter Details Date Type Department Care Team (Late st Contact Info) Description 01/30/2016 11:00 AM EDT Office Visit Dermatology at [facility] [address] [place] [address] Deborah Patel MD Eczema, unspecified type Social History Tobacco Use Types Packs/Day Years Used Date Smoking Tobacco: Never Sex and Gender Information Value Date Recorded Sex Assigned at Not on file Gender Identity Not on file Sexual Orientation Not on file documented as of this encounter Progress Notes * Deborah Patel MD - 01/30/2016 11:00 AM EDT DERMATOLOGY - ESTABLISHED PATIENT FOLLOW-UP Date of service: 01/30/2016 Molly Meek : 1945 Dermatology Resident Note: Deborah Patel MD, PGY4 Chief Complaint Patient presents with ??? Follow-up HPI: Ms. Molly Meek is a 70 y.o. female. This is an established patient, last seen by me on 12/13/2015. She presents today for follow up of eczematous dermatitis and states that it has almost resolved. She has been applying Vaseline daily, and if she gets an itch, she will apply triamcinolone cream. Estimates TAC use is 2-3 times per week. Then uses white cotton socks as gloves in the morning. No other skin concerns today. Skin History: per patient and derm note dated 06/03/15 Actinic keratosis Inflamed seborrheic keratosis Eczematous dermatitis: Differential diagnosis includes allergic contact dermatitis and atopic dermatitis. The latter is doubtful given late onset in life. ?? There is no problem list on file for this patient. ?? PMH/PSH not reviewed in detail with pt today. When asked about past medical/surgical history in [facility], patient reported: Hysterectomy Tonsillectomy Current Outpatient Prescriptions Medication Sig Dispense Refill ??? triamcinolone (KENALOG) 0.1 % Ointment Apply topically twice daily to the affected arms and hands. 80 g 0 ??? ofloxacin (FLOXIN) 0.3 % Drops ??? albuterol (PROVENTIL HFA;VENTOLIN HFA;PROAIR) 90 mcg/actuation HFA Aerosol Inhaler Inhale 2 puffs into the lungs. Use with spacer ??? calcium carbonate (TUMS) 200 mg (500 mg) chewable tablet ??? ibuprofen (ADVIL;MOTRIN) 200 mg tablet No current facility-administered medications for this visit. No Known Allergies Review of Systems: - General: Feels well. C/o recent cold. - Skin: As per HPI; no other skin concerns. Examination: - Constitutional: Patient was alert, well-appearing and in no noticeable distress. - Skin: Skin examination of the bilateral hands and forearms was normal with the exception of the findings listed below. Notable findings/Assessment/Plan: 1. Eczematous dermatitis: Right proximal distal forearm has lichenified, flesh- colored plaque. Otherwise the skin is relatively normal appearing. - Encouraged pt to continue Vaseline on a daily basis for maintenance. - Okay to continue triamcinolone sparingly as needed for itch. Pt understands the risk of skin thinning with prolonged, continuous use. Follow-up: RTC as needed. I, Lisa Padilla LPN, am documenting this encounter acting as the scribe for and in the presence of Dr. Deborah aPtel. I performed the above scribed service and agree with the accuracy of the documentation of this encounter. Deborah Patel MD, PGY4 Resident in Dermatology [facility] Staff secretary receptionist: Laurita Saucedo MD Section of Dermatology [facility] * Laurita Saucedo MD - 01/30/2016 11:00 AM EDT I was the supervising physician working with dermatology resident Dr. Deborah Patel in the dermatology clinic during this patient visit. The level of Resident supervision for this patient visit was indirect supervision with direct supervision immediately available. (definition: [facility] Policy Statement on Graduate Medical Education, Supervision of Graduate Medical Trainees) I was immediately available to Dr. Patel for questions and discussion regarding this visit. I have reviewed her encounternote details and level of service. LAURITA SAUCEDO MD Staff Physician documented in this encounter Plan of Treatment Not on file documented as of this encounter Visit Diagnoses Diagnosis Eczema, unspecified type documented in this encounter Care Teams Structural Steel Equipment Erector Relationship Specialty Start Date End Date Bhavna Jarvis APRN [address] [place] [address] PCP - General 04/29/10 05/25/24 documented as of this encounter
--- OUTSIDE RECORDS SUMMARY | 2024-06-03 06:52 | XMS_ITS | Encounter Summary ---
Author Organization [facility] [place] [address] Care Team Providers Care Product Development Name Role Phone Bhavna Jarvis APRN Primary Care Provider [phone] Encounter Details Date Type Department Care Team ([facility] st Contact Info) Description 08/13/2010 1:00 PM EDT Office Visit [address] [address] Bryant Simmons MD [address] [place] [address] Social History Tobacco Use Types Packs/Day Years Used Date Smoking Tobacco: Never Assessed Sex and Gender Information Value Date Recorded Sex Assigned at Not on file Gender Identity Not on file Sexual Orientation Not on file documented as of this encounter Plan of Treatment Not on file documented as of this encounter Visit Diagnoses Not on filedocumented in this encounter Care Teams Product Development Relationship Specialty Start Date End Date Bhavna Jarvis APRN [address] [place] [address] PCP - General 04/29/10 05/25/24 documented as of this encounter
--- OUTSIDE RECORDS SUMMARY | 2024-06-03 06:52 | XMS_ITS | Encounter Summary ---
Author Organization [facility] Address One [facility] [place] [address] Care Team Providers Care Farm Supervisor Name Role Phone Bhavna Jarvis APRN Primary Care Provider [phone] Encounter Details Date Type Department Care Team ([facility] Contact Info) Description 12/04/[address] [place] [address] Adenike Leary MD Social History Tobacco Use Types Packs/Day Years Used Date Smoking Tobacco: Never Sex and Gender Information Value Date Recorded Sex Assigned at Not on file Gender Identity Not on file Sexual Orientation Not on file documented as of this encounter Miscellaneous Notes * Telephone Encounter - Ruchi Crawford - 12/04/2015 4:[address] Leary schedule change. LVM for the patient stating they had an upcoming appointment that needed to be re-scheduled and asking them to call me back. I left my direct line. documented in this encounter Plan of Treatment Not on file documented as of this encounter Visit Diagnoses Not on filedocumented in this encounter Care Teams Farm Supervisor Relationship Specialty Start Date End Date Bhavna Jarvis APRN [address] [place] [address] PCP - General 04/29/10 05/25/24 documented as of this encounter
--- NOTE | 2024-06-03 06:58 | ED.GENADUL_ITS ---
Discharge Plan Disposition Patient Disposition: Home Condition: Good Discharge Details Clinical Impression: Influenza A Primary Care Provider: IRINEO PRITCHARD ED Provider: Mohit Olivera Home Meds and New Rx's Prescriptions: New oseltamivir [Tamiflu] 75 mg capsule 75 mg PO BID 5 Days Qty: 10 0RF prednisone 50 mg tablet 50 mg PO DAILY Qty: 5 0RF No Action amlodipine 2.5 mg Tablet 5 mg PO QPM losartan 100 mg Tablet 100 mg PO DAILY albuterol 90 mcg/actuation Aerosol 90 mcg INHALATION DIRECTED calcium carbonate-vitamin D2 600 mg calcium- 200 unit Tablet 1 tab PO DAILY fluticasone furoate-vilanterol [Breo Ellipta] 100-25 mcg/dose blister with device 1 inh INHALATION DAILY Patient Comments: INHALE 1 PUFF BY MOUTH EVERY 24 HOURS Discharge Instructions Instructions: Flu, Adult ED Additional Instructions: At this time you have influenza A. Please take the Tamiflu as prescribed. Please take the prednisone as prescribed. Please take your albuterol inhaler 2 puffs every 4-6 hours for the next week. If you notice any worsening of your symptoms, or any new symptoms such as vomiting, diarrhea, fever, chills, shortness of breath, chest pain, numbness, weakness, or fainting , please return immediately to the emergency department for reevaluation. Please follow up with your primary care provider as soon as possible for reassessment and reevaluation. As always, it was a pleasure participating in your medical care today. Referrals: IRINEO PRITCHARD DO [Primary Care Provider] - Discharge Data Discharge Date/Time-TO BE ENTERED AT DEPARTURE: 06/03/24 07:52 HPI General Date/Time Provider Initiated Documentation: 06/03/24 06:40 . HPI Narrative: This is a 79-year-old notably healthy female with a very very distant history of smoking who uses the occasional albuterol inhaler, who presents today for evaluation of runny nose, congestion and mild cough. Symptoms have been present for the last 2 days. She has been notably fatigued. She denies vomiting or diarrhea. She admits to chills. She denies chest pain or pleuritic chest pain. She denies headache or neck pain. No other complaints at this time. No other modifying factors. Related Data Home Medications ?Medication ?Instructions ?Recorded ?Confirmed amlodipine 2.5 mg tablet 5 mg PO QPM 08/19/20 06/03/24 losartan 100 mg tablet 100 mg PO DAILY 08/19/20 06/03/24 albuterol 90 mcg/actuation aerosol 90 mcg inhalation DIRECTED 07/10/21 06/03/24 inhaler calcium carb-ergocalciferol (vit 1 tab PO DAILY 07/10/21 06/03/24 D2) 600 mg calcium-200 unit tablet fluticasone furoate 100 1 inh inhalation DAILY 06/03/24 06/03/24 mcg-vilanterol 25 mcg/dose inhalation powder (Breo Ellipta) oseltamivir 75 mg capsule (Tamiflu) 75 mg PO BID 5 days #10 caps 06/03/24 prednisone 50 mg tablet 50 mg PO DAILY #5 tabs 06/03/24 Previous Rx's ?Medication ?Instructions ?Recorded oseltamivir 75 mg capsule (Tamiflu) 75 mg PO BID 5 days #10 caps 06/03/24 prednisone 50 mg tablet 50 mg PO DAILY #5 tabs 06/03/24 Allergies Allergy/AdvReac Type Severity Reaction Status Date / Time No Known Allergies Allergy Unverified 06/03/24 06:39 General Stated Complaint: RespSymp JAVI: 4 Exam Narrative Exam Narrative: 1.Const: Well-nourished, Well-developed, appearing stated age 2.Eyes: PERRL, no conjunctival injection, and symmetrical lids. 3.ENT: Atraumatic external nose and ears. Moist MM. Neck: Symmetric, trachea midline, No thyromegaly. No erythema in the posterior oropharynx. 4.CVS: +S1/S2, Peripheral pulses 2+ and equal in all extremities. Brisk capillary refill in all extremities. 5.RESP: Mild diffuse wheezes throughout, no rales or rhonchi. 6.GI: Soft, Nontender/Nondistended, No hepatosplenomegaly. No guarding or rebound. 7.MSK: Normocephalic/Atraumatic, Extremities w/o deformity or ttp No cyanosis or clubbing, Normal movement of all extremities 8.Skin: Warm, Dry. No rashes or lesions. 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 Sensation grossly intact, no focal neurologic deficits. 10.Psych: (AAO) x3. Appropriate mood and affect Course Vital Signs Vital signs: Vital Signs Temperature 36.6 C 06/03/24 06:32 Pulse 65 06/03/24 06:32 Respiratory Rate 16 06/03/24 06:32 Blood Pressure 151/73 H 06/03/24 06:32 Pulse Oximetry 96 06/03/24 06:32 Temperature 36.6 C 06/03/24 06:36 Temperature Source Temporal Artery Scan 06/03/24 06:36 Pulse 65 06/03/24 06:32 Respiratory Rate 16 06/03/24 06:36 Respiratory Effort Normal, Non-Labored 06/03/24 06:36 Respiratory Depth Normal 06/03/24 06:36 Blood Pressure 151/73 H 06/03/24 06:36 Blood Pressure Position Sitting 06/03/24 06:36 Pulse Oximetry 96 06/03/24 06:36 Oxygen Delivery Method Room Air 06/03/24 06:36 Oxygen Flow Rate 0 06/03/24 06:32 Pain Level 0 06/03/24 06:36 Medical Decision Making This is a 79-year-old notably healthy female with a very very distant history of smoking who uses the occasional albuterol inhaler, who presents today for evaluation of runny nose, congestion and mild cough. Symptoms have been present for the last 2 days. She has been notably fatigued. She denies vomiting or diarrhea. She admits to chills. She denies chest pain or pleuritic chest pain. She denies headache or neck pain. No other complaints at this time. No other modifying factors. Exam demonstrates well-appearing female, no tachycardia, tachypnea or fever or hypoxemia. No erythema in the posterior oropharynx. Mild wheezes throughout. Suggest viral upper respiratory infection with subsequent mild reactive airway disease exacerbation. Will give 60 of prednisone, DuoNeb treatment, test for flu and COVID, get chest x-ray to rule out pneumonia. 7:43 AM Influenza A is positive. Patient has notable resolution of her wheezes after breathing treatment. Will prescribe prednisone Tamiflu for home. Discussed red flags which to return. Patient has no hypoxemia tachycardia or tachypnea at time of discharge. No clinical evidence to suggest pneumonia. I have extensively reviewed the treatment plan and discharge instructions with the patient. I have addressed all patient concerns at this time. The patient was made aware of what symptoms to monitor for that would warrant a return to the emergency department. Discussed the plan with the patient, they demonstrate verbal understanding and agreement with our assessment and plan at this time. The documentation in this chart was dictated using [employer] dictation software. Please excuse any dictation errors. INDINGS: LUNGS: Clear. No pleural abnormality seen. HEART: Mildly enlarged. AORTA: Mildly tortuous. BONES: Unremarkable for age. Soft tissues: Unremarkable. IMPRESSION: No acute findings. Quality:SDOH Health Related Social Needs: No Data to Display PFSH All Active Problems (Updated 06/03/24 @ 07:39 by Mohit Olivera DO) Influenza A (Acute) Medical History (Updated 06/03/24 @ 07:39 by Mohit Olivera DO) Diverticulosis Tibia fracture Osteopenia Mild intermittent asthma Ascending aorta dilatation Per pt. her PCP is watching it, it's moderate in size HTN (hypertension) Surgical History (Updated 10/21/21 @ 11:03 by ZOE Rivera) H/O: hysterectomy Hx of colonoscopy Closed fracture of left hip (06/09/21) S/P ORIF with IM nail: 06/10/2021 Social History Smoking/Tobacco Use Status: Former Tobacco Use Quit Date: 05/17/76 Smoking risk assessment performed?: Yes Alcohol Intake: former Drug use: Daily Substance use type: marijuana Details: edibles Current gender identity: female Do you feel safe at home: Yes Additional Social history: live alone
[2024-06-03 07:00] VITALS: RESP 5
[2024-06-03] MEDS: Albuterol/Ipratropium 3 ML UPD VIAL UPD (07:00)
[2024-06-03] MEDS: predniSONE 20 MG TAB 60 MG PO (07:01)
[2024-06-03 07:28] LABS: COVID-19 PCR Negative (Negative); Influenza A PCR Positive (Negative); Influenza B PCR Negative (Negative); RSV PCR Negative (Negative)
[2024-06-03 07:29] LABS: Source Nasopharynx
[2024-06-03] MEDS: Oseltamivir 75 MG CAP PO (07:43)
[2024-06-03 07:51] VITALS: BP 150/71; PULSE 76; RESP 18; O2SAT 96
--- NOTE | 2024-06-03 08:45 | DI.VRAD_ITS ---
PROCEDURE INFORMATION: Exam: XR Chest Exam date and time: 06/03/2024 7:02 AM Age: 79 years old Clinical indication: Other: Cough, eval for pneumonia TECHNIQUE: Imaging protocol: Radiologic exam of the chest. Views: 1 view. COMPARISON: No relevant prior studies are available for comparison. FINDINGS: Lungs: Hyperinflated lungs. Correlate clinically for obstructive pulmonary disease. No focal consolidation seen. Pleural spaces: No large pleural effusion seen. Heart/Mediastinum: No cardiomegaly. Vasculature: Arterial calcifications. Bones/joints: No acute abnormality. IMPRESSION: 1. No acute findings to explain reported symptoms. 2. Nonacute findings as outlined above. Dictated and Authenticated by: Shaneka Hollis MD. Ordering:CRISPIN Rueda MD
== END 2024-06-03 07:52 | disposition home or self-care (01) ==
PROVIDERS: Emergency Provider Student in an Organized Health Care Education/Training Program; PCP Internal Medicine
DX: J10.1 Influenza due to other identified influenza virus with other respiratory manifestations (principal); I10 Essential (primary) hypertension; Z87.891 Personal history of nicotine dependence
CPT/HCPCS: 82962; 87637; 94640; 99284; 71045; J7512; J7620